=== PATIENT | female | born 1960 | race Caucasian/White ===

== ENCOUNTER 2020-04-30 07:24 | Emergency (ER) | payer BC, SELFPAY ==
[2020-04-30 07:50] VITALS: BP 147/80; PULSE 102; RESP 14; TEMP 36.4; O2SAT 97
--- NOTE | 2020-04-30 08:02 | ED.GENADULT ---
HPI - General Adult General Chief complaint: Eye Problems Stated complaint: splashed hand glove cleaner in eye Source: patient Mode of arrival: ambulatory History of Present Illness HPI narrative: Gail is a previously healthy 59F that presented to the ED after she got make up in her right eye. She immediately irrigated it for 10-15 minutes with tap water. She followed the instructions on the bottle and came to see a doctor. She does not know the active ingredient. Her vision has returned to normal. After washing it out it was a little irritated but now feels normal. She has no other symptoms. Related Data Home Medications Medication Instructions Recorded Confirmed digoxin 125 mcg PO DAILY 04/30/20 04/30/20 verapamil 240 mg PO DAILY 04/30/20 04/30/20 Allergies Allergy/AdvReac Type Severity Reaction Status Date / Time butorphanol Allergy Severe HYPERTENSION, Verified 04/30/20 08:15 TACHYCARDIA Cephalosporins Allergy Severe SKIN Verified 04/30/20 08:15 PEELING cephalexin Allergy Unknown Unknown Verified 04/30/20 08:15 BUTORPHANOL TARTRATE Allergy Unknown Unknown Uncoded 04/30/20 08:15 Review of Systems Constitutional: Constitutional: Reports no additional constitutional complaints, Denies chills, Denies fever(s) and Denies weakness Eyes: Eyes: Reports as per HPI ENT: Reports system reviewed and no additional complaints, except as documented Cardiovascular: Cardiovascular: Reports no additional cardiovascular complaints Respiratory: Respiratory: Reports no additional respiratory complaints Gastrointestinal: Gastrointestinal: Reports no additional gastrointestinal complaints Genitourinary: Genitourinary: Reports no additional female genitourinary complaints Musculoskeletal: Musculoskeletal: Reports no additional musculoskeletal complaints Integumentary/Breasts: Skin/Breast: Reports system reviewed and no additional complaints, except as docu Neurologic: Reports system reviewed and no additional complaints, except as documented Psychiatric: Psychiatric: Reports no additional psychiatric complaints Exam Const: General: no acute distress and alert; No confusion Orientation/consciousness: patient oriented x3 Limitations: No altered mental status HENMT: Head: normal to inspection Eyes: Pupils: Equal, round and reactive pupils present Other: Very slight conjunctival injection on the right. Vision 20/25 on the L, and 20/30 on the right Neck: Neck: normal visual inspection Chest: Chest palpation & inspection: normal inspection of the chest Resp: Effort & Inspection: normal respiratory effort Cardio: Rate: regular rate GI: GI Palp: Yes Soft to palpation, No Tenderness to palpation present (GI) and No Guarding due to palpation present (GI) : General: Yes no CVA tenderness Skin: General skin exam: normal color Rashes: no rashes Neuro: General: patient oriented x3 and moves all extremities Extrem: General: normal to inspection Psych: Mental Status: mental status grossly normal Course Course Emergency Course: Gail was evaluated. Eye was irrigated with dacirose eye irrigation. She remained pain free and here eyesight was at baseline. She was discharged with prophylactic eye drops Vital Signs Vital signs: Vital Signs Temperature 97.6 F 04/30/20 07:50 Pulse Rate 102 H 04/30/20 07:50 Respiratory Rate 14 04/30/20 07:50 Blood Pressure 147/80 H 04/30/20 07:50 Pulse Oximetry 97 04/30/20 07:50 Temperature 97.6 F 04/30/20 07:50 Pulse Rate 102 H 04/30/20 07:50 Respiratory Rate 14 04/30/20 07:50 Blood Pressure 147/80 H 04/30/20 07:50 Pulse Oximetry 97 04/30/20 07:50 Medical Decision Making Vital Signs Vital Signs: Vital Signs Temperature 97.6 F 04/30/20 07:50 Pulse Rate 102 H 04/30/20 07:50 Respiratory Rate 14 04/30/20 07:50 Blood Pressure 147/80 H 04/30/20 07:50 Pulse Oximetry 97 04/30/20 07:50 Temperature 97.6 F 04/30/20 07:50 Pulse
[2020-04-30] MEDS: DACRIOSE EYE IRRIGATION 118 ML BOTTLE 100 ML RIGHT EYE (08:16)
[2020-04-30 08:50] VITALS: BP 147/91; PULSE 90; RESP 15; O2SAT 99
== END 2020-04-30 08:51 | disposition home or self-care (01) ==
PROVIDERS: Emergency Provider Family Medicine; PCP Internal Medicine
DX: H57.11 Ocular pain, right eye (principal)
CPT/HCPCS: 99283; A9270

== ENCOUNTER 2022-08-20 09:23 | Emergency (ER) | payer BC, SELFPAY ==
[2022-08-20 09:26] VITALS: BP 165/80; PULSE 110; RESP 20; TEMP 37; O2SAT 99
--- NOTE | 2022-08-20 09:38 | ED.GENADULT ---
HPI - General Adult General Chief complaint: Extremity Injury, Lower Stated complaint: Leg pain Time Seen by Provider: 08/20/22 09:38 History of Present Illness HPI narrative: The patient is an otherwise healthy 62 year old woman with history of supraventricular tachycardia on digoxin and verapamil therapy. No history of hyperlipidemia. For the last 3 days, she has been wearing flip-flops and noticed that she has an aching pain in the posterior aspect of both thighs. No trauma or falls. No pain at the knee or the hip or below the knee, the pain is only in the thighs posteriorly. No back pain or neck pain. No numbness or paresthesias. It is an aching sensation, not severe. She has taken Tylenol and ibuprofen which has relieved her symptoms. She is worried about a blood clot or any other symptoms before a big trip that she has planned. No fevers. No dyspnea. No wheezing. No other complaints. Related Data Home Medications Medication Instructions Recorded Confirmed digoxin 125 mcg (0.125 mg) tablet 125 mcg PO DAILY 04/30/20 04/30/20 verapamil 240 mg 24 hr 240 mg PO DAILY 04/30/20 04/30/20 capsule,extended release Allergies Allergy/AdvReac Type Severity Reaction Status Date / Time butorphanol Allergy Severe HYPERTENSION, Verified 05/07/20 12:46 TACHYCARDIA Cephalosporins Allergy Severe SKIN Verified 05/07/20 12:46 PEELING cephalexin Allergy Unknown Unknown Verified 05/07/20 12:46 BUTORPHANOL TARTRATE Allergy Unknown Unknown Uncoded 05/07/20 12:46 Review of Systems Review of Systems: All systems reviewed & are unremarkable except as noted in HPI and below Constitutional: Constitutional: Denies chills, Denies excessive sweating, Denies fatigue, Denies fever(s), Denies headache(s) and Denies weakness Eyes: Eyes: Denies change in vision and Denies photophobia ENT: Denies dysphagia, Denies dizziness, Denies headache(s), Denies lip swelling, Denies nasal congestion, Denies sore throat and Denies tongue swelling Cardiovascular: Cardiovascular: Denies chest pain, Denies syncope, Denies rapid heart rate and Denies dyspnea Respiratory: Respiratory: Denies cough, Denies dyspnea and Denies wheezing Gastrointestinal: Gastrointestinal: Denies abdominal pain, Denies constipation, Denies dysphagia, Denies diarrhea, Denies nausea and Denies vomiting Genitourinary: Genitourinary: Denies hematuria, Denies urinary frequency, Denies dysuria and Denies urinary urgency Musculoskeletal: Musculoskeletal: Denies back pain, Denies myalgias ( Does have pain at both thighs posteriorly), Denies arthralgias, Denies joint swelling and Denies numbness Integumentary/Breasts: Skin/Breast: Denies pruritus, Denies erythema and Denies rash Neurologic: Denies confusion, Denies dizziness, Denies syncope, Denies headache(s), Denies focal weakness, Denies numbness and Denies weakness Psychiatric: Psychiatric: Denies anxiety and Denies confusion Endocrine: Endocrine: Denies excessive sweating and Denies fatigue Hematologic/Lymphatic: Hematologic/Lymphatic: Denies easy bleeding and Denies easy bruising Allergic/Immunologic: Allergic/Immunologic: Denies lip swelling, Denies tongue swelling and Denies wheezing PMFSH Family History Family History Mother Hypertension Father Hypertension Exam Const: General: healthy appearing, no acute distress, alert and well nourished Nutritional Appearance: well nourished Orientation/consciousness: patient oriented x3 Limitations: no limitations HENMT: Head: normal to inspection Ears: external ears normal Face/Nose/Sinus: normal facial exam Face and sinus: normal facial exam Mouth: Yes moist mucous membranes Throat: posterior oropharynx normal Eyes: Conjunctivae: conjunctivae normal Pupils: Equal, round and reactive pupils present EOM: EOMs intact bilaterally Neck: Neck: normal visual inspection and no meningeal signs Chest: Chest pa
[2022-08-20] MEDS: ACETAMINOPHEN 325 MG TABLET 975 MG PO (10:03)
[2022-08-20] MEDS: IBUPROFEN 600 MG TABLET PO (10:03)
[2022-08-20] MEDS: CYCLOBENZAPRINE HCL 10 MG TABLET PO (10:03)
[2022-08-20 10:11] VITALS: BP 144/82; PULSE 86; RESP 18; TEMP 37.3; O2SAT 97
== END 2022-08-20 10:31 | disposition home or self-care (01) ==
PROVIDERS: Emergency Provider Emergency Medicine
DX: M79.652 Pain in left thigh (principal); M79.651 Pain in right thigh; I47.1 Supraventricular tachycardia
CPT/HCPCS: 99283; A9270

== ENCOUNTER 2022-10-20 17:54 | Emergency (ER) | payer BC, SELFPAY ==
--- NOTE | ~2022-10-20 | CT_ITS ---
EXAMINATION: CT abdomen pelvis wo con DATE: 10/20/2022 19:00 INDICATION: Right flank pain. History of stones. TECHNIQUE: Computed tomography (CT) of the abdomen and pelvis was performed without intravenous contr ast. The dose-length product was 210.40 mGy-cm. Automated exposure control and iterative reconstructi on technique were employed. COMPARISON: CT dated 07/09/2016 FINDINGS: Lung bases are unremarkable no pleural or pericardial effusion. No thoracic lymphadenopathy . Small fat-containing umbilical hernia. Gallstones. Hepatomegaly. The spleen, pancreas, adrenal glan ds and left kidney are unremarkable. There are nonobstructing right renal stones, largest in the righ t renal pelvis measuring 4 mm. No hydronephrosis. Coarse calcification in the left pelvis is unchange d, likely of doubtful clinical significance. Bladder is unremarkable. Colonic diverticulosis without evidence for diverticulitis. No free air or free fluid. IMPRESSION: 1. Nonobstructing right nephrolithiasis. 2: Cholelithiasis. Reviewed, dictated and finalized at location A.
[2022-10-20 17:54] VITALS: BP 160/85; PULSE 80; RESP 20; TEMP 36.6; O2SAT 99
[2022-10-20 18:19] LABS: Appearance Urine Clear (Clear); Bilirubin Urine 1+ (Negative); Blood Urine 3+ (Negative); Glucose Urine UA Negative (Negative); Ketones Urine Negative (Negative); Leukocyte Esterase Ur Negative LEU/UL (Negative); Protein Urine 3+ (Negative); Specific Grav Ur >= 1.030 (1.010-1.020)
[2022-10-20 18:24] LABS: Add Urine Microscopic? YES; Color Urine Dark Orange (Yellow); Nitrate Urine Negative (Negative); RBC Urine >100 /hpf (0-2)
--- NOTE | 2022-10-20 18:24 | ED.FEMALEGU ---
HPI - Female Genitourinary General Chief complaint: Unspecified Stated complaint: Uti not getting better with meds Source: patient Mode of arrival: ambulatory Limitations: no limitations History of Present Illness HPI Narrative: 62-year-old female with a history of Gilbert's, SVT,pyelonephritis 15 years ago was noted to have dark colored urine and malaise 3 days ago for which she went to urgent care. She was noted to have a positive UA and started on Macrobid. After 3 days the patient continues to have --high colored urine. no dysuria or hematuria -- right flank pain no fever or chills MD elicited complaint: UTI Pertinent past history: pyelonephritis Onset (ago): day(s) ( symptoms started 3 days ago) Severity: mild Female Urogenital Radiation: Non-Radiating Quality of pain: aching Consistency: constant Vaginal discharge: none Vaginal bleeding: none Urinary symptoms: Flank Pain Exacerbating factors: none Relieving factors: none Associated symptoms: denies other symptoms Treatment prior to arrival: other ( nitrofurantoin) Related Data Home Medications Medication Instructions Recorded Confirmed digoxin 125 mcg (0.125 mg) tablet 125 mcg PO DAILY 04/30/20 10/20/22 verapamil 240 mg 24 hr 240 mg PO DAILY 04/30/20 10/20/22 capsule,extended release nitrofurantoin macrocrystal 100 mg 100 mg PO BID 10/20/22 10/20/22 capsule Allergies Allergy/AdvReac Type Severity Reaction Status Date / Time butorphanol Allergy Severe HYPERTENSION, Verified 05/07/20 12:46 TACHYCARDIA Cephalosporins Allergy Severe SKIN Verified 05/07/20 12:46 PEELING cephalexin Allergy Unknown Unknown Verified 05/07/20 12:46 BUTORPHANOL TARTRATE Allergy Unknown Unknown Uncoded 05/07/20 12:46 Review of Systems Review of Systems: All systems reviewed & are unremarkable except as noted in HPI and below Constitutional: Constitutional: Reports as per HPI and Reports no additional constitutional complaints Eyes: Eyes: Reports as per HPI and Reports no additional eye complaints ENT: Reports system reviewed and no additional complaints, except as documented and Reports as per HPI Cardiovascular: Cardiovascular: Reports as per HPI and Reports no additional cardiovascular complaints Respiratory: Respiratory: Reports as per HPI and Reports no additional respiratory complaints Gastrointestinal: Gastrointestinal: Reports as per HPI and Reports no additional gastrointestinal complaints Genitourinary: Genitourinary: Reports no additional female genitourinary complaints Musculoskeletal: Musculoskeletal: Reports no additional musculoskeletal complaints Integumentary/Breasts: Skin/Breast: Reports system reviewed and no additional complaints, except as docu and Reports as per HPI Neurologic: Reports system reviewed and no additional complaints, except as documented and Reports as per HPI Psychiatric: Psychiatric: Reports no additional psychiatric complaints and Reports as per HPI Endocrine: Endocrine: Reports no additional endocrine complaints and Reports as per HPI Hematologic/Lymphatic: Hematologic/Lymphatic: Reports no additional hematologic/lymphatic complaints and Reports as per HPI Allergic/Immunologic: Allergic/Immunologic: Reports no additional allergic/immunologic complaints and Reports as per HPI PMF Past Medical History Medical History (Updated 10/20/22 @ 20:23 by Arya Wright MD) Supraventricular tachycardia Family History Family History Mother Hypertension Father Hypertension Exam Const: General: no acute distress Orientation/consciousness: patient oriented x3 Limitations: no limitations HENMT: Head: normal to inspection Ears: external ears normal Face/Nose/Sinus: Normal external nose present Face and sinus: normal facial exam Mouth: Yes Normal oral and palatal mucosa present Throat: posterior oropharynx normal Eyes: Conjunctivae: conjunctivae no
[2022-10-20 18:25] LABS: Amorphous Sediment Urine Few; Calcium Oxalate Crystals Urine Many /hpf; Mucus Urine Moderate /lpf; Squamous Epithelial Cell Urine Few /hpf (Few)
[2022-10-20 19:25] LABS: Hematocrit 40.2 % (35.0-49.0); Mean Corpuscular HGB Conc 34.8 g/dL (32.0-36.0); Mean Corpuscular Hemoglobin 32.4 pg (27.0-31.0); Mean Corpuscular Volume 93.1 fL (78.0-102.0); Mean Platelet Volume 9.9 fl (9.2-11.8); Platelet Count Result 159 K/mm3 (150-420); Red Blood Count 4.32 M/mm3 (4.20-5.40); Red Cell Distribution Width 11.7 % (11.6-14.4); White Blood Count 3.9 K/mm3 (4.8-10.8)
[2022-10-20 19:40] LABS: Alanine Aminotransferase 58 U/L (14-59); Albumin Level 4.5 g/dL (3.4-5.0); Alkaline Phosphatase 118 U/L (46-116); Anion Gap 7 mmol/L (8-16); Aspartate Amino Transferase 27 U/L (15-37); Bilirubin,Total 1.2 mg/dL (0.00-1.00); Blood Urea Nitrogen 16 mg/dL (7-18); Calcium 9.2 mg/dL (8.5-10.1); Carbon Dioxide 31 mmol/L (21-32); Chloride 101 mmol/L (98-108); Estimated CRCL calculation 82 ml/min; Estimated Glomerular Filt Rate > 60; Glucose 136 mg/dL (70-99); Lipase 61 U/L (16-77); Osmolality Calculated 291 mOsm/kg (285-295); Potassium 3.2 mmol/L (3.5-5.1); Sodium 139 mmol/L (136-145); Total Protein 7.4 g/dL (6.4-8.2)
[2022-10-20 19:45] VITALS: BP 140/66; PULSE 80; RESP 20; O2SAT 97
[2022-10-20 19:47] LABS: Lactic Acid Reflex 1.4 mmol/L (0.4-2.0)
[2022-10-20 19:49] LABS: Band Neutrophils Percent 0 % (0-6); Neutrophils Percent Manual 59 % (46-73); Total Cells Counted 100
[2022-10-20 19:50] LABS: Basophils Absolute Manual 0.03 K/mm3 (0-0.1); Basophils Percent Manual 1 % (0-1); Eosinophils Absolute Manual 0.03 K/mm3 (0.02-0.5); Eosinophils Percent Manual 1 % (1-6); Lymphocytes Absolute Manual 1.17 K/mm3 (1.1-4.5); Lymphocytes Percent Manual 30 % (18-44); Monocytes Absolute Manual 0.35 K/mm3 (0.1-0.90); Monocytes Percent Manual 9 % (3-9); Platelet Estimate Adequate (Adequate); Schistocytes None Seen (NORMAL)
[2022-10-20] MEDS: POTASSIUM CHLORIDE 20 MEQ ER TABLET PO (20:20)
[2022-10-20 20:31] VITALS: BP 133/78; PULSE 80; RESP 17; TEMP 36.6; O2SAT 97
== END 2022-10-20 20:36 | disposition home or self-care (01) ==
PROVIDERS: Emergency Provider Internal Medicine Critical Care Medicine; PCP Internal Medicine
DX: N20.0 Calculus of kidney (principal); K80.20 Calculus of gallbladder without cholecystitis without obstruction; E87.6 Hypokalemia
CPT/HCPCS: 36415; 74176; 80053; 81001; 83605; 83690; 85025; 99284; A9270

== ENCOUNTER 2022-10-25 11:02 | Outpatient (CLI) | payer BC, SELFPAY ==
--- NOTE | ~2022-10-25 | XR_ITS ---
Supine and upright views of the abdomen Clinical history: Renal stone COMPARISON: 08/04/2007 Findings: Bowel gas pattern is nonspecific. No evidence for obstruction or free air. Probable amorpho us 4 mm right lower pole renal stone. Osseous structures are intact. Impression: Probable 4 mm right lower pole renal stone. Reviewed, dictated and finalized at [facility] [place]. Impression: Probable 4 mm right lower pole renal stone.
== END 2022-10-25 11:03 | disposition home or self-care (01) ==
LOC: CHSIMG 11:04
PROVIDERS: PCP Internal Medicine; Visit Provider Urology
DX: N20.0 Calculus of kidney (principal)
CPT/HCPCS: 74018

== ENCOUNTER 2022-11-15 16:03 | Outpatient (CLI) | payer BC, SELFPAY ==
[2022-11-15 16:44] LABS: Partial Thromboplastin Time 27.7 SEC (23.90-30.70); Prothrombin Time 10.9 Seconds (9.50-12.10)
[2022-11-15 17:47] LABS: Digoxin 0.6 ng/mL (0.9-2.0)
== END 2022-11-15 16:04 | disposition home or self-care (01) ==
LOC: CHSLAB 16:05
PROVIDERS: Anesthesiology; PCP Internal Medicine; Visit Provider Urology
DX: N20.0 Calculus of kidney (principal); Z51.81 Encounter for therapeutic drug level monitoring
CPT/HCPCS: 36415; 80162; 85610; 85730

== ENCOUNTER 2022-11-16 07:06 | Outpatient (CLI) | payer BC, SELFPAY ==
--- NOTE | 2022-11-16 07:13 | ECG_ITS ---
Measurements Intervals [place] Rate: 74 P: 70 FL: 144 QRS: 77 QRSD: 100 T: 70 QT: 402 QTc: 447 Interpretive Statements SINUS RHYTHM MINIMAL ST DEPRESSION INFEROLATERALLY SUGGESTIVE OF ISCHEMIA; CLINICAL CORRELATION NEEDED NO PREVIOUS ECG AVAILABLE FOR COMPARISON Electronically Signed On 11-17-2022 13:59:30 CDT by Marry Garcia M.D.
== END 2022-11-16 07:07 | disposition home or self-care (01) ==
LOC: CHSLAB 07:08
PROVIDERS: PCP Internal Medicine; Visit Provider Urology
DX: Z01.818 Encounter for other preprocedural examination (principal); R82.90 Unspecified abnormal findings in urine; N20.0 Calculus of kidney; I49.8 Other specified cardiac arrhythmias
CPT/HCPCS: 87086; 87088; 93005

== ENCOUNTER 2022-11-19 01:44 | Day surgery (SDC) | payer BC, SELFPAY ==
[2022-11-15 15:11] VITALS: BMI 25.0
--- NOTE | 2022-11-15 15:17 | PC.NURSE ---
Report to the Outpatient Waiting Room, entrance under the green pavilion located off [facility], at time 6:00 on date 11/19/22. Planned Procedure Time: 7:30. Time changes happen often and if your time is changed the preop area will call you the afternoon before. - You and your visitor will be asked to self-screen and do not enter if you have any COVID symptoms. - A mask is optional within the hospital at this time. Patients may have clear liquids (water, carbonated beverages, clear teas, apple juice) until 3 hours prior to surgery with a maximum of 20 ounces. - No food from midnight until time of surgery Take the following medications with a SIP of water the morning of surgery: N/A DO NOT STOP ANY OF YOUR OTHER PRESCRIPTION MEDICATIONS PRIOR TO SURGERY ?EXCEPT THE FOLLOWING Medications to discontinue per physician: VITAMINS/SUPPLEMENTS Date to take last dose: 11/15/22 Please no make-up, nail syrian, hairspray, perfume, deodorant, or body powder the day of surgery. No jewelry (including any body piercings) or valuables the day of surgery, leave them at home. Please take a shower or bath the night before, or the morning of, surgery with an antibacterial soap. Wear comfortable, loose fitting clothing. - Jewelry must be removed prior to entering the operating room. Rings and piercings that are not removed may be cut off. - The hospital will not accept responsibility for valuables. - Please leave all valuables, including medications, at home the day of surgery. If you are going home after surgery, a licensed drop hammer pile driver operator must drive you home. - NO public transportation without another adult if you receive anesthesia. - We recommend that an adult stay with you for 24 hours following discharge. - We also recommend that you do not drive, make important decision, drink alcoholic beverages, or take any drugs that were not prescribed by your health care provider for at least 24 hours after your discharge time. Follow any additional instructions given to you from your surgeon. If you or anyone in your household have experienced Covid symptoms in the past week, please notify your surgeon or the nurse liaison at the phone number below for possible testing. Telephone instructions given to PT - DM [place]T and asked if any additional questions and then verbalized understanding. Patient advised to call surgeon office or pre surgery nurse liaison [phone] if any additional questions.
--- NOTE | ~2022-11-19 | XR_ITS ---
EXAMINATION: XR abdomen/kub 1V DATE: 11/19/2022 06:19 INDICATION: Kidney stones. TECHNIQUE: A supine view of the abdomen on 2 radiographs was obtained. COMPARISON: CT abdomen and pelvis 10/20/2022 FINDINGS: There are no dilated loops of bowel. There is a 6 mm stone in right kidney. IMPRESSION: 1. 6 mm right kidney stone. Reviewed, dictated and finalized at location A. IMPRESSION: 1. 6 mm right kidney stone.
[2022-11-19 06:30] VITALS: BP 148/67; PULSE 90; RESP 16; TEMP 36.4; O2SAT 99
[2022-11-19] MEDS: LACTATED RINGERS 1,000 ML 30 ML IV CONT ×2 (06:30→08:00)
--- NOTE | 2022-11-19 06:42 | WPDHPUPDATE1 ---
History and Physical Update Update Date/Time: 11/19/22 06:42 History and Physical has been reviewed, including an updated exam of the patient. There are NO changes in the patient's condition. Risks, benefits, and alternatives have been discussed and questions answered. Patient agrees to proceed with procedure.
--- NOTE | 2022-11-19 06:45 | WPDHPUPDATE1 ---
History and Physical Update Update Date/Time: 11/19/22 06:45 History and Physical has been reviewed, including an updated exam of the patient. There are NO changes in the patient's condition. Risks, benefits, and alternatives have been discussed and questions answered. Patient agrees to proceed with procedure. Plan: Right ESWL
--- NOTE | 2022-11-19 06:46 | P.PNAN_ITS ---
Anes - Initial Pre Proc Eval Procedure: Operation Date: 11/19/22 07:30 Proposed Procedures p Right Extracorporeal Shock Wave Lithotripsy - Denny Martin MD Date/Time: 11/19/22 06:46 Surgeon: Denny Martin MD Pre Op Diagnosis: right renal stone Patient Data Age: 62 Gender: F Height: 1.63 m Weight: 66 kg Allergies Allergy/AdvReac Type Severity Reaction Status Date / Time butorphanol Allergy Severe HYPERTENSION, Verified 11/15/22 15:09 TACHYCARDIA Cephalosporins Allergy Severe SKIN Verified 11/15/22 15:09 PEELING cephalexin Allergy Unknown Other Verified 11/15/22 15:09 Home Medications Medication Instructions Recorded Confirmed Type digoxin 125 mcg (0.125 mg) tablet 125 mcg PO HS 04/30/20 11/15/22 History verapamil 240 mg 24 hr 240 mg PO HS 04/30/20 11/15/22 History capsule,extended release cetirizine 10 mg tablet (Zyrtec) 10 mg PO HS 11/15/22 11/15/22 History multivitamin 1 tablet PO DAILY 11/15/22 11/15/22 History potassium chloride 20 mEq 20 meq PO DAILY 11/15/22 11/15/22 History tablet,extended release(part/cryst) Patient hx anesthesia problems: none Family hx anesthesia problems: none Results Review: All pre-operative results and documents have been reviewed as part of the pre- operative evaluation. [facility] Past Medical History Medical History (Updated 11/19/22 @ 07:13 by Ant Martinez DO) Supraventricular tachycardia well controlled for 30 years Family History Family History Mother Hypertension Father Hypertension Social History Social History Smoking status: Never smoker Alcohol intake: never Substance use: never Substance use type: does not use Living arrangements: with family Spiritual care concerns: No Anes - Eval Final PreProcedure Day of Procedure 11/19/22 06:46 Patient weight: normal Heart: regular rate and rhythm Lungs: clear to auscultation Airway: Mallampati scale class II Neurological: alert and oriented Last oral intake: >/= 8 hours ASA classification: II Emergent: no Anesthetic plan: proceed Anesthesia type and monitoring: general LMA and standard monitoring Results Review: All pre-operative results and documents have been reviewed as part of the pre- operative evaluation. Informed Consent: The patient's anesthetic plan and its attendant risks and benefits were discussed with the patient/family/POA. Questions were solicited and answers provided to the satisfaction of the patient/family/POA.
[2022-11-19] MEDS: levoFLOXacin 500 MG/D5W 100 ML 500 MG/100 ML BAG 100 MG IVPB (07:20)
[2022-11-19 08:00] VITALS: BP 161/86; PULSE 94; RESP 22; TEMP 36.1; O2SAT 99
--- NOTE | 2022-11-19 08:09 | W.PM.PROC2 ---
Procedure Note - Detailed Date of Procedure 11/19/22 Pre-op Diagnosis Right renal stone Post-op Diagnosis Same Procedure Performed Right ESWL Surgeon Denny Martin MD Anesthesia MAC Description of Procedure The patient was brought to the operative suite where she was placed in the supine position on the Dornier lithotripsy table. The focal point of the lithotripter was placed at a 5-6mm right lower pole renal calculus. A total of 2500 shocks were delivered at a power setting of 4. There appeared to be good fragmentation of the stone. The patient tolerated the procedure well and was taken to the recovery room in good condition. Drains No Pathology None sent Condition Stable Disposition PACU
[2022-11-19 08:15] VITALS: BP 146/82; PULSE 84; RESP 14; O2SAT 100
[2022-11-19 08:30] VITALS: BP 148/76; PULSE 69; RESP 14; O2SAT 100
[2022-11-19 08:43] VITALS: BP 157/92; PULSE 90; RESP 20; O2SAT 99
[2022-11-19 08:47] VITALS: BP 127/89; PULSE 79; RESP 18
== END 2022-11-19 09:39 | disposition home or self-care (01) ==
PROVIDERS: PCP Internal Medicine; Visit Provider Urology
PROC: (CPT 50590; principal; 2022-11-19 07:30)
DX: N20.0 Calculus of kidney (principal); I10 Essential (primary) hypertension; I47.1 Supraventricular tachycardia
CPT/HCPCS: 50590; 74018; J1100; J1956; J2405; J2704; J7120

== ENCOUNTER 2022-11-26 14:58 | Outpatient (CLI) | payer BC, SELFPAY ==
--- NOTE | ~2022-11-26 | XR_ITS ---
EXAMINATION: XR abdomen/kub 1V DATE: 11/26/2022 15:47 INDICATION: Kidney stone. TECHNIQUE: A supine view of the abdomen on 2 radiographs was obtained. COMPARISON: CT abdomen and pelvis 10/20/2022 FINDINGS: There are no dilated loops of bowel. There is a large volume of stool in the colon. There i s no visible urolithiasis. IMPRESSION: 1. No visible urolithiasis. Reviewed, dictated and finalized at location E. IMPRESSION: 1. No visible urolithiasis.
== END 2022-11-26 14:59 | disposition home or self-care (01) ==
LOC: CHSIMG 15:00
PROVIDERS: PCP Internal Medicine; Visit Provider Urology
DX: N20.0 Calculus of kidney (principal)
CPT/HCPCS: 74018

== ENCOUNTER 2023-01-04 09:25 | Outpatient (CLI) | payer BC, SELFPAY ==
--- NOTE | 2023-01-04 | ECHO_ITS ---
Patient Info Name: Gail Queen Age: 62 years : 1960 Gender: Female Ht: 65 in Wt: 145 lbs BSA: 1.75 m2 HR: 84 bpm BP: 160 / 84 mmHg Heart Rhythm: Sinus Rhythm Technical Quality: Good Exam Date: 01/04/2023 10:05 AM Exam Location: [facility] Patient Status: Outpatient Admit Date: 01/04/2023 Staff Ordering Physician: RenMorgan MD Machine Set Up: Nan Last RDCS Attending Provider: TonioMorgan MD Exam Type: CA echo doppler color flow Study Info Indications - ABN EKG Complete two-dimensional, color flow and Doppler transthoracic echocardiogram is performed. Summary 1. Complete two-dimensional, color flow and Doppler transthoracic echocardiogram is performed. 2. Left ventricular chamber dimension is normal. 3. Left ventricular systolic function is normal, estimated at 65-70%. 4. There is no increased left ventricular wall thickness. 5. The left ventricular diastolic function is grade I diastolic dysfunction. 6. There is mild aortic valve sclerosis. 7. There is mild to moderate mitral valve regurgitation. 8. The mitral valve has thickened leaflets. 9. There is mild tricuspid valve regurgitation. 10. Mild pulmonary hypertension, estimated pulmonary arterial systolic pressure is 37 mmHg. 11. There is mild pulmonic regurgitation. Left Ventricle Left ventricular chamber dimension is normal. Left ventricular systolic function is normal, estimated at 65-70%. There is no increased left ventricular wall thickness. The left ventricular diastolic function is grade I diastolic dysfunction. Right Ventricle Right ventricular chamber dimension is normal. Right ventricular systolic function is normal. Left Atria Left atrial chamber dimension is normal. Right Atria Right atrial chamber dimension is normal. Atrial Septum Intact interatrial septum visualized by color flow imaging. Aortic Valve The aortic valve is trileaflet. There is mild aortic valve sclerosis. There is no aortic valve stenosis. There is trace aortic valve regurgitation. Pulmonic Valve The pulmonic valve is normal. There is no pulmonic valve stenosis. There is mild pulmonic regurgitation. Mitral Valve The mitral valve has thickened leaflets. There is no mitral valve stenosis. There is mild to moderate mitral valve regurgitation. Tricuspid Valve The tricuspid valve leaflets are normal. There is no significant tricuspid valve stenosis. There is mild tricuspid valve regurgitation. Mild pulmonary hypertension, estimated pulmonary arterial systolic pressure is 37 mmHg. Pericardium/Pleural The pericardium appears normal. There is no pericardial effusion. Inferior Vena Cava Normal inferior vena cava with >50% collapse upon inspiration consistent with normal right atrial pressure, 10 mmHg. Aorta The aortic root size at the sinus of Valsalva is mildly dilated. Left Ventricular Outflow Tract Name Value Normal LVOT 2D LVOT Diameter 2.1 cm LVOT Doppler LVOT Peak Gradient 5 mmHg LVOT Mean Gradient 2 mmHg LVOT VTI 25 cm LVOT VTI/AV VTI Ratio 0.9 LVOT Stroke Volum
--- NOTE | 2023-01-04 | EST_ITS ---
Patient Info Name: Gail Queen Age: 62 years : 1960 Gender: Female Ht: 64 in Wt: 150 lbs BSA: 1.77 m2 Exam Date: 01/04/2023 11:32 AM Exam Location: [facility] Stress Patient Status: Outpatient Admit Date: 01/04/2023 Staff Ordering Physician: Ren, Morgan ALEMAN Attending Provider: Ren, Morgan ALEMAN Exercise Technologist: Alissa Pedroza RDCS Nurse: Effie Mena APN Exam Type: CA stress majo w NM Study Info Indications R94.31 - Abnormal electrocardiogram ECG EKG A regadenoson stress test was performed. Summary 1. No abnormal ST/T wave changes diagnostic of ischemia with Lexiscan. 2. Please correlate with nuclear medicine images, reported separately. 3. Stress test supervised by Effie Mena NP. Stress test interpreted by Oneida Meléndez MD. Protocol: Lexiscan Stress ECG Details Stage: REST Duration (min): 1 min : 8 sec HR (bpm): 96 SBP (mmHg): 140 DBP (mmHg): 95 Stage: REST Duration (min): 5 min : 19 sec HR (bpm): 91 SBP (mmHg): 140 DBP (mmHg): 95 Stage: STAGE 1 Duration (min): 1 min : 0 sec HR (bpm): 123 SBP (mmHg): 178 DBP (mmHg): 82 Stage: RECOVERY Duration (min): 1 min : 0 sec HR (bpm): 120 SBP (mmHg): 178 DBP (mmHg): 82 Stage: RECOVERY Duration (min): 2 min : 0 sec HR (bpm): 107 SBP (mmHg): 167 DBP (mmHg): 81 Stage: RECOVERY Duration (min): 3 min : 0 sec HR (bpm): 102 SBP (mmHg): 168 DBP (mmHg): 85 Stage: RECOVERY Duration (min): 3 min : 3 sec HR (bpm): 100 SBP (mmHg): 168 DBP (mmHg): 85 Rest HR: 91 bpm Peak HR: 127 bpm Rest Sys BP: 140 mmHg Peak Sys BP: 178 mmHg Max Pred HR: 160 bpm % Max Pred HR: 79 % Target HR: 136 bpm Max RPP: 22,606 bpm*mmHg Total Time: 1 min : 0 sec Rest Lee BP: 95 mmHg Peak Lee BP: 82 mmHg Total Dose: 0.4 mg Resting ECG Sinus rhythm with nonspecific STTW abnormality. Stress ECG Sinus tachycardia. No abnormal ST/T wave changes diagnostic of ischemia with Lexiscan. Arrhythmias None. Report Signatures
--- NOTE | ~2023-01-04 | NM_ITS ---
EXAMINATION: NM majo stress w perfusion DATE: 01/04/2023 12:27 CDT INDICATION: Abnormal EKG. TECHNIQUE: Rest images were obtained following intravenous administration of 9 mCi Tc99m tetrofosmin (Myoview). The patient was infused intravenously with Lexiscan (regadenoson). Then, 27.3 mCi Tc99m te trofosmin (Myoview) was administered intravenously, and stress images were obtained. Data was reconst ructed into short axis and horizontal and vertical long axis SPECT images. Gated SPECT images were al so obtained. COMPARISON: None. FINDINGS: There is no definite reversible or fixed perfusion abnormality to suggest ischemia or infar ction. There is no segmental wall motion abnormality. Left ventricular ejection fraction measures 7 7%. IMPRESSION: 1. No definite ischemia or infarct. 2. Normal left ventricular ejection fraction measuring 77%. Reviewed, dictated and finalized at location L.
== END 2023-01-04 09:26 | disposition home or self-care (01) ==
PROVIDERS: PCP Internal Medicine; Visit Provider Internal Medicine
DX: R94.31 Abnormal electrocardiogram [ECG] [EKG] (principal); I08.3 Combined rheumatic disorders of mitral, aortic and tricuspid valves
CPT/HCPCS: 78452; 93017; 93306; A9502; J2785

== ENCOUNTER 2023-01-18 08:40 | Outpatient (CLI) | payer BC, SELFPAY ==
--- NOTE | 2023-02-06 05:24 | WPDHOMESLEEP ---
Sleep Study - Home Unattended Date of Study: 01/18/23 Ordering Provider: Morgan Mcclure, Interpreting Provider: Nely Valentin MD Home Sleep Study Type: Watch PAT Height: 1.63 m Weight: 65.771 kg Body Mass Index: 24.9 Neck Circumference (inches): 13 Hagerman: 6 Reason for Sleep Study History of restless legs Sleep History Gail Queen is a 62-year-old woman with long history of restless legs. She never awakens from sleep short of breath. She never wakes at night with heartburn, belching or coughing.??She rarely snores, never snores loudly enough that others complain. She occasionally has trouble sleeping when she has a cold. She never wakes up gasping for breath during the night. She never has breathing problems at night. She never sweats excessively at night. She never notices her heart pounding or beating irregularly during the night. She never asleep during the day. She never falls asleep involuntarily, never falls asleep while driving. She never experiences loss of muscle tone with strong emotion. She never feels paralyzed on waking or falling asleep. She rarely experiences vivid dreams upon waking or falling asleep. She never feels afraid of going to sleep. She rarely has nightmares. She frequently recalls her dreams. She rarely has thoughts racing through her mind. She rarely feels sad or depressed. She occasionally feels anxiety. She never notices parts of her body jerk. She never kicks during the night. She occasionally feels crawling or aching feelings in her legs. She rarely feels leg pain at night. She never has morning jaw pain, and never grinds her teeth at night. She rarely feels bothered by pain during the day, never awakened by pain during the night. She never wakes up feeling stiff in the morning, never wakes feeling sore or achy in the morning. She never awakens with pain in her neck, spine, or joints. Normal bedtime is 9:00 p m waking 1-2 times during the night long enough to go to the bathroom and return to sleep. She wakes the morning between 5 and 6:00 a.m.. Weekend schedule is similar, she wakes at 7:00 a.m.. She estimates getting 7-8 hours of sleep at night. She occasionally takes naps in the day. A short nap lasting 10-15 minutes may be refreshing. She usually feels good on waking. She feels better in the evening compared to other times a day. Habits:??Tobacco: never smoker Caffeine:1-3 per week. Alcohol:none Recreational substances: none FORMERLY [facility], 1928–1983 Past Medical History Medical History (Updated 02/07/23 @ 10:14 by Nely Valentin MD) Mitral regurgitation Restless legs syndrome (RLS) Rhinitis Supraventricular tachycardia well controlled for 30 years Family History Family History Mother Hypertension Father Hypertension Social History Social History Smoking status: Never smoker Alcohol intake: never Substance use: never Substance use type: does not use Living arrangements: with family Spiritual care concerns: No Medications Home Medications Medication Instructions Recorded Confirmed Type digoxin 125 mcg (0.125 mg) tablet 125 mcg PO HS 04/30/20 11/15/22 History verapamil 240 mg 24 hr 240 mg PO HS 04/30/20 11/15/22 History capsule,extended release cetirizine 10 mg tablet (Zyrtec) 10 mg PO HS 11/15/22 11/15/22 History multivitamin 1 tablet PO DAILY 11/15/22 11/15/22 History potassium chloride 20 mEq 20 meq PO DAILY 11/15/22 11/15/22 History tablet,extended release(part/cryst) ketorolac 10 mg tablet 10 mg PO Q6H 5 days #20 tabs 11/19/22 Rx nitrofurantoin 100 mg PO Q12H 3 days #6 caps 11/19/22 Rx monohydrate/macrocrystals 100 mg capsule (Macrobid) Sleep Procedure The sleep study was completed using [employer] a technically adequate device with seven channels: peripheral arterial tone, actigraphy, body position, snore,
[2023-02-07 10:11] VITALS: BMI 24.9
== END 2023-01-19 10:51 | disposition home or self-care (01) ==
LOC: ANHCSM 08:41
PROVIDERS: PCP Internal Medicine; Visit Provider Internal Medicine
DX: G47.9 Sleep disorder, unspecified (principal); G25.81 Restless legs syndrome
CPT/HCPCS: 95800

== ENCOUNTER 2023-03-18 17:11 | Outpatient (CLI) | payer BC, SELFPAY ==
[2023-03-18 18:00] LABS: Ferritin 190 ng/mL (8-252)
== END 2023-03-18 17:12 | disposition home or self-care (01) ==
LOC: CHSLAB 17:14
PROVIDERS: PCP Internal Medicine; Visit Provider Internal Medicine
DX: G47.9 Sleep disorder, unspecified (principal)
CPT/HCPCS: 36415; 82728

== ENCOUNTER 2023-10-10 22:15 | Emergency (ER) | payer BC, SELFPAY ==
--- NOTE | ~2023-10-10 | CT_ITS ---
EXAMINATION: CTA brain carotid DATE: 10/10/2023 23:31 INDICATION: r/o dissection TECHNIQUE: Computed tomographic angiography (CTA) of the head was performed without and with 100 mL O mnipaque-350 intravenous contrast. CTA of the neck was performed with intravenous contrast. Automated exposure control and iterative reconstruction technique were employed. The dose-length product was 1 576.22 mGy-cm. Maximum intensity projection and volume rendered 3D-reconstructions were created by leslee delaney technologist on a separate workstation. COMPARISON: None. FINDINGS: CT BRAIN: No acute large vessel infarct, intracranial hemorrhage, mass, or hydrocephalus. CTA HEAD: No large vessel occlusion, aneurysm, high flow vascular malformation, nidus or extravasation. Persist ent origin of the right posterior cerebral artery, a normal variant. Symmetric parenchymal enha ncement. Patent cerebral veins. CTA NECK: Motion artifact and dental metallic artifact somewhat limit evaluation of the right bifurcation and b ilateral distal vertebral arteries. Aortic arch and proximal great vessels: Normal arch anatomy. Mild arch calcification. Right common carotid, carotid bifurcation, and internal carotid artery: Calcifications at the bifurca tion.There is 0% stenosis of the proximal right internal carotid artery relative to normal distal art meron lumen diameter (NASCET criteria). Left common carotid, carotid bifurcation, and internal carotid artery: Calcification at the bifurcati on.There is 0% stenosis of the proximal left internal carotid artery relative to normal distal artery lumen diameter (NASCET criteria). Vertebral arteries: No significant plaque or stenosis. Mild calcified plaque at the origin of the lef t vertebral artery. The left vertebral artery is dominant. Other findings: Multiple thyroid nodules measuring up to 1.5 cm. IMPRESSION: No acute intracranial process. No large vessel intracranial occlusion, high-grade intracranial stenosis, or aneurysm. No carotid or vertebral artery occlusion, dissection, or significant stenosis. Multiple thyroid nodules, consider nonemergent thyroid ultrasound for further characterization. Reviewed, dictated and finalized at location K. IMPRESSION: No acute intracranial process. No large vessel intracranial occlusion, high-grade intracranial stenosis, or an eurysm. No carotid or vertebral artery occlusion, dissection, or significant stenosis. Multiple thyroid nodules, consider nonemergent thyroid ultrasound for further c haracterization.
[2023-10-10 22:18] VITALS: BP 172/88; PULSE 126; RESP 18; TEMP 36.8; O2SAT 100
--- NOTE | 2023-10-10 22:26 | ECG_ITS ---
Test Date: 2023-10-10 22:38:53 Measurements Intervals [place] Rate: 107 P: 65 MT: 152 QRS: 62 QRSD: 106 T: 67 QT: 358 QTc: 479 Interpretive Statements SINUS TACHYCARDIA [address] ABNORMALITY IN ANTEROLAT/INF LEADS- CONSIDER ISCHEMIA BASELINE ARTIFACT- I, III, AVR, AVL, AVF ABNORMAL ECG No previous ECG available for comparison Electronically Signed On 10-11-2023 06:38:05 CDT by Gael Pacheco D.O.
--- NOTE | 2023-10-10 22:30 | ED.NEUROSD ---
HPI - Neuro Symptoms/Deficit General Chief Complaint: Neuro Symptoms/Deficit Stated Complaint: unspecified Time Seen by Provider: 10/10/23 22:22 Source: patient Mode of arrival: ambulatory Limitations: no limitations History of Present Illness HPI Narrative: 63 year old female presents to the Emergency Department complaining of episode of vision loss. Patient states she was standing in her kitchen looking out the windows and watching the bats outside and she turned her head and suddenly everything went black. States lasted several seconds and resolved. States she feels normal now. Denies chest pain, shortness of breath, nausea, diaphoresis. Denies headache. States she is anxious because she had a friend that had brain tumor. States she had a cardiac work up and stress test in May 2023 that was normal. Onset (ago): minute(s) Location: other (visual loss) History of same: No Relieving factors: none Exacerbating factors: none Context: sudden onset Associated symptoms: denies other symptoms Treatments Prior to Arrival: none Related Data Home Medications Medication Instructions Recorded Confirmed digoxin 125 mcg (0.125 mg) tablet 125 mcg PO HS 04/30/20 10/10/23 verapamil 240 mg 24 hr 240 mg PO HS 04/30/20 10/10/23 capsule,extended release multivitamin 1 tablet PO DAILY 11/15/22 10/10/23 potassium chloride 20 mEq 20 meq PO DAILY 11/15/22 10/10/23 tablet,extended release(part/cryst) Allergies Allergy/AdvReac Type Severity Reaction Status Date / Time butorphanol Allergy Severe HYPERTENSION, Verified 11/19/22 07:48 TACHYCARDIA Cephalosporins Allergy Severe SKIN Verified 11/19/22 07:48 PEELING cephalexin Allergy Unknown Other Verified 11/19/22 07:48 Review of Systems Review of Systems: All systems reviewed & are unremarkable except as noted in HPI and below Constitutional: Constitutional: Reports as per HPI, Reports no additional constitutional complaints, Denies chills and Denies fever(s) Eyes: Eyes: Reports as per HPI and Reports change in vision ENT: Reports system reviewed and no additional complaints, except as documented, Denies vertigo and Denies dizziness Cardiovascular: Cardiovascular: Reports as per HPI and Denies chest pain Respiratory: Respiratory: Reports as per HPI, Denies cough and Denies dyspnea Gastrointestinal: Gastrointestinal: Reports as per HPI, Denies abdominal pain, Denies diarrhea, Denies nausea and Denies vomiting Genitourinary: Genitourinary: Reports no additional female genitourinary complaints Musculoskeletal: Musculoskeletal: Reports no additional musculoskeletal complaints Neurologic: Reports system reviewed and no additional complaints, except as documented, Reports as per HPI, Denies dizziness, Denies syncope, Denies headache(s), Denies focal weakness, Denies numbness and Denies weakness Psychiatric: Psychiatric: Reports anxiety PMFSH Past Medical History Medical History Mitral regurgitation Restless legs syndrome (RLS) Rhinitis Supraventricular tachycardia well controlled for 30 years Family History Family History Mother Hypertension Father Hypertension Social History Social History Smoking status: Never smoker Alcohol intake: never Substance use: never Substance use type: does not use Living arrangements: with family Spiritual care concerns: No Exam Const: General: healthy appearing and no acute distress Nutritional Appearance: well nourished Orientation/consciousness: patient oriented x3 Limitations: no limitations Other: anxious HENMT: Head: normal to inspection Ears: external ears normal Face/Nose/Sinus: Normal external nose present Face and sinus: normal facial exam Mouth: Yes Normal oral and palatal mucosa present Teeth and gingiva: dentition normal Thr
[2023-10-10 22:37] VITALS: PULSE 107
[2023-10-10 22:41] VITALS: PULSE 108; RESP 15; O2SAT 98
[2023-10-10 22:42] VITALS: BP 156/74; PULSE 109; RESP 16; O2SAT 99
[2023-10-10 22:42] LABS: Hematocrit 41.5 % (35.0-49.0); Hemoglobin 14.4 g/dL (12.0-15.0); Immature Platelet Fraction Pct 2.3 % (1.0-7.0); Mean Corpuscular HGB Conc 34.7 g/dL (32-36); Mean Corpuscular Hemoglobin 32.1 pg (27.0-31.0); Mean Corpuscular Volume 92.4 fL (78.0-102.0); Mean Platelet Volume 10.1 fl (9.2-11.8); Platelet Count Result 126 K/mm3 (150-420); Red Blood Count 4.49 M/mm3 (4.20-5.40); Red Cell Distribution Width 11.9 % (11.6-14.4); White Blood Count 3.3 K/mm3 (4.8-10.8)
[2023-10-10 23:00] LABS: Alanine Aminotransferase 45 U/L (14-59); Albumin Level 4.5 g/dL (3.4-5.0); Alkaline Phosphatase 117 U/L (46-116); Anion Gap 8 mmol/L (4-12); Aspartate Amino Transferase 25 U/L (15-37); Bilirubin,Total 1.1 mg/dL (0.00-1.00); Blood Urea Nitrogen 20 mg/dL (7-18); Calcium 9.3 mg/dL (8.5-10.1); Carbon Dioxide 28 mmol/L (21-32); Chloride 103 mmol/L (98-108); Estimated CRCL calculation 93 ml/min; Estimated Glomerular Filt Rate > 60; Glucose 113 mg/dL (70-99); Osmolality Calculated 291 mOsm/kg (285-295); Potassium 3.2 mmol/L (3.5-5.1); Sodium 139 mmol/L (136-145); Total Protein 7.5 g/dL (6.4-8.2); Troponin I 4.2 ng/L (0.00-60.4)
[2023-10-10 23:15] LABS: Band Neutrophils Percent 0 % (0-6); Basophils Absolute Manual 0.03 K/mm3 (0-0.1); Basophils Percent Manual 1 % (0-1); Eosinophils Percent Manual 0 % (1-6); Lymphocytes Absolute Manual 1.48 K/mm3 (1.1-4.5); Lymphocytes Percent Manual 45 % (18-44); Monocytes Absolute Manual 0.23 K/mm3 (0.1-0.90); Monocytes Percent Manual 7 % (3-9); Neutrophils Absolute Manual 1.55 K/mm3 (1.7-7.2); Neutrophils Percent Manual 47 % (46-73); Total Cells Counted 100
[2023-10-10 23:16] LABS: Platelet Estimate Adequate (Adequate); Schistocytes None Seen
[2023-10-10 23:36] LABS: Influenza A QL RT-PCR Negative (Negative); Influenza B QL RT-PCR Negative (Negative); RSV RNA, RT-PCR Negative (Negative); SARS-CoV-2 RNA PCR Negative (Negative)
[2023-10-10 23:44] LABS: Erythrocyte Sedimentation Rate 6 mm/hr (0-20)
[2023-10-11 00:22] VITALS: BP 140/85; PULSE 85; RESP 16; TEMP 36.6; O2SAT 98
== END 2023-10-11 00:22 | disposition home or self-care (01) ==
PROVIDERS: Emergency Provider Emergency Medicine; PCP Internal Medicine
DX: H54.7 Unspecified visual loss (principal); E87.6 Hypokalemia; E04.1 Nontoxic single thyroid nodule; F41.9 Anxiety disorder, unspecified; Z79.899 Other long term (current) drug therapy; Z20.822 Contact with and (suspected) exposure to COVID-19
CPT/HCPCS: 36415; 70496; 70498; 80053; 84484; 85025; 85055; 85652; 87637; 93005; 99284; Q9967

== ENCOUNTER 2023-10-19 08:36 | Outpatient (CLI) | payer BC, SELFPAY ==
[2023-10-19 09:01] LABS: Hematocrit 39.4 % (35.0-49.0); Hemoglobin 13.7 g/dL (12.0-15.0); Mean Corpuscular HGB Conc 34.8 g/dL (32-36); Mean Corpuscular Hemoglobin 32.8 pg (27.0-31.0); Mean Corpuscular Volume 94.3 fL (78.0-102.0); Mean Platelet Volume 10.3 fl (9.2-11.8); Platelet Count Result 146 K/mm3 (150-420); Red Blood Count 4.18 M/mm3 (4.20-5.40); Red Cell Distribution Width 11.9 % (11.6-14.4)
[2023-10-19 09:21] LABS: Band Neutrophils Percent 0 % (0-6); Eosinophils Absolute Manual 0.06 K/mm3 (0.02-0.50); Eosinophils Percent Manual 2 % (1-6); Lymphocytes Percent Manual 40 % (18-44); Monocytes Absolute Manual 0.45 K/mm3 (0.1-0.90); Monocytes Percent Manual 15 % (3-9); Neutrophils Absolute Manual 1.29 K/mm3 (1.7-7.2); Neutrophils Percent Manual 43 % (46-73); Platelet Estimate Adequate (Adequate); Total Cells Counted 100
[2023-10-19 09:32] LABS: Anion Gap 7 mmol/L (4-12); Blood Urea Nitrogen 15 mg/dL (7-18); Calcium 9.4 mg/dL (8.5-10.1); Carbon Dioxide 31 mmol/L (21-32); Chloride 102 mmol/L (98-108); Estimated Glomerular Filt Rate > 60; Glucose 133 mg/dL (70-99); Magnesium 1.9 mg/dL (1.8-2.4); Osmolality Calculated 292 mOsm/kg (285-295); Potassium 3.8 mmol/L (3.5-5.1); Sodium 140 mmol/L (136-145)
== END 2023-10-19 08:37 | disposition home or self-care (01) ==
PROVIDERS: PCP Internal Medicine; Visit Provider Internal Medicine
DX: D72.819 Decreased white blood cell count, unspecified (principal)
CPT/HCPCS: 36415; 80048; 83735; 85025; 88184

== ENCOUNTER 2023-11-14 15:19 | Outpatient (CLI) | payer BC, SELFPAY ==
[2023-11-14 15:38] LABS: Basophils Absolute Auto 0.03 K/mm3 (0.00-0.10); Basophils Percent Auto 0.7 % (0.0-1.0); Eosinophils Absolute Auto 0.05 K/mm3 (0.02-0.50); Eosinophils Percent Auto 1.1 % (1.0-6.0); Hematocrit 37.2 % (35.0-49.0); Hemoglobin 12.9 g/dL (12.0-15.0); Immature Granulocyte Absolute 0.02 K/mm3 (0.00-0.00); Immature Granulocyte Percent A 0.5 % (0.0-0.0); Lymphocytes Absolute Auto 1.35 K/mm3 (1.10-4.50); Lymphocytes Percent Auto 30.7 % (18.0-42.0); Mean Corpuscular HGB Conc 34.7 g/dL (32-36); Mean Corpuscular Hemoglobin 32.8 pg (27.0-31.0); Mean Corpuscular Volume 94.7 fL (78.0-102.0); Mean Platelet Volume 10.2 fl (9.2-11.8); Monocytes Absolute Auto 0.48 K/mm3 (0.10-0.90); Monocytes Percent Auto 10.9 % (2.0-11.0); Neutrophils Absolute Auto 2.47 K/mm3 (1.70-7.20); Neutrophils Percent Auto 56.1 % (50.0-70.0); Platelet Count Result 142 K/mm3 (150-420); Red Blood Count 3.93 M/mm3 (4.20-5.40); White Blood Count 4.4 K/mm3 (4.8-10.8)
[2023-11-14 16:40] LABS: Alanine Aminotransferase 45 U/L (14-59); Albumin Level 4.4 g/dL (3.4-5.0); Alkaline Phosphatase 127 U/L (46-116); Anion Gap 7 mmol/L (4-12); Aspartate Amino Transferase 25 U/L (15-37); Bilirubin,Total 0.8 mg/dL (0.00-1.00); Blood Urea Nitrogen 16 mg/dL (7-18); Calcium 9.6 mg/dL (8.5-10.1); Carbon Dioxide 32 mmol/L (21-32); Chloride 101 mmol/L (98-108); Estimated Glomerular Filt Rate > 60; Glucose 99 mg/dL (70-99); Magnesium 2.2 mg/dL (1.8-2.4); Osmolality Calculated 291 mOsm/kg (285-295); Potassium 4.1 mmol/L (3.5-5.1); Sodium 140 mmol/L (136-145); Total Protein 7.2 g/dL (6.4-8.2)
== END 2023-11-14 15:20 | disposition home or self-care (01) ==
PROVIDERS: PCP Internal Medicine; Visit Provider Internal Medicine
DX: E87.6 Hypokalemia (principal)
CPT/HCPCS: 36415; 80053; 83735; 85025

== ENCOUNTER 2024-07-12 12:41 | Outpatient (CLI) | payer BC, SELFPAY ==
--- OUTSIDE RECORDS SUMMARY | 2024-07-12 12:56 | XMS_ITS | CONTINUITY OF CARE DOCUMENT ---
Author Name chatoelianeamalia Address Unknown Organization [facility] Address [address] [place] [address] Phone [phone] Care Team Providers Care Drafter Apprentice Name Role Phone Nena ALEMAN, Simon Unavailable GENIA SINGH MD Unavailable PROBLEMS Condition Status Date Provider Notes Irregular heart beats active Danielle rivas Cardiovascular screening active Jing Adams INS[employer]ANCE PROVIDERS Payer name Policy type / Coverage type Sabine Pass red democrat ID BLUE SHIELD [facility] Blue Shield [id number] 1 BLUE SHIELD [facility] Blue Shield [id number] 1 TREATMENT PLAN Date Name Complete Echo CT, Coronary Calcium Score HISTORY OF PROCEDURES Procedure Date Procedure Name Provider Procedure Notes S tatus CT- Coronary CA score Simon Barrett MD completed
--- OUTSIDE RECORDS SUMMARY | 2024-07-12 12:56 | XMS_ITS | Clinical Summary ---
Author Organization [facility] Address [address] [place] [address] Phone Care Team Providers Care Railroad Supervisor Of [employer]ines Name Role Phone Morgan Mcclure MD Primary Care Provider [phone] Allergies Active Allergy Reactions Criticality Noted Date Comments Cephalexin Rash 05/15/2019 Butorphanol Other (see Comments) 05/29/2019 Pt states that she was given this while she was laboring with one of her children and her bp dropped and they had to give her Narcon to counter act it. Medications Cetirizine HCl 10 MG Capsule Take by mouth. Active digoxin (LANOXIN) 125 MCG Tablet 04/28/2019 Active Verapamil HCl Powder Active Probiotic Product (PRO-BIOTIC BLEND) Capsule Take by mouth. Active Active Problems Problem Noted Date Diagnosed Date SVT (supraventricular tachycardia) 07/26/2019 MVP (mitral valve prolapse) 07/26/2019 Lymphocytopenia 07/25/2019 Seasonal allergies 07/25/2019 Family History Medical History Relation Name Comments Heart Attack Father Hypertension Father Skin Cancer Father Hypertension Mother Ovarian Cancer Mother Relation Name Status Comments Father Alive Mother Alive Social History Tobacco Use Types Packs/Day Years Used Date Smoking Tobacco: Never Smokeless Tobacco: Never Tobacco Cessation:Counseling Given: No Alcohol Use Standard Drinks/Week Comments Yes 0 (1 standard drink = 0.6 oz pur e alcohol) rarley Comments No Sex and Gender Information Value Date Recorded Sex Assigned at Not on file Legal Sex Female 10:50 PM CDT Gender Identity Not on file Sexual Orientation Not on file Last Filed Vital Signs Vital Sign Reading Time Taken Comments Blood Pressure 120/72 05/29/2019 10:49 AM ASSISTANT TO THE VICE PRESIDENT Pulse 81 05/29/2019 10:49 AM ASSISTANT TO THE VICE PRESIDENT Temperature 37.4 C (99.4 F) 05/29/2019 10:49 AM ASSISTANT TO THE VICE PRESIDENT Respiratory Rate 18 05/29/2019 10:4 9 AM ASSISTANT TO THE VICE PRESIDENT Oxygen Saturation 96% 05/29/2019 10: 49 AM ASSISTANT TO THE VICE PRESIDENT Inhaled Oxygen Concentration - - Weight 65.2 kg (143 lb 12.8 oz) 020 10:49 AM ASSISTANT TO THE VICE PRESIDENT Height 162.6 cm (5' 4 ) 05/29/2019 10:4 9 AM ASSISTANT TO THE VICE PRESIDENT Body Mass Index 24.68 05/29/2019 10:49 AM ASSISTANT TO THE VICE PRESIDENT Plan of Treatment Health Maintenance Due Date Last Done Comments Hepatitis C Virus (HCV) Screening 1960 TdaP Immunization 1960 Colonoscopy 06/15/2007 Colorectal Cancer Screening 06/15/2007 Cologuard 2012 Immunochemical Fecal Occult Blood 2012 Pneumococcal Immunization (5 0+ years) (1 of 1 - PCV) 2012 Zoster Immunization (1 of 2) 2012 Influenza Immunization (#1) 2023 SARS-COV-2 Immunization (1 - 2023-25 season) 2023 Respiratory Syncytial Virus (RSV) Immunization (Adult) (1 - 1-dose 75+ series) 2037 Hepatitis B Immunization Aged Out No longer eligible based on patient's age to complete this topic Meningococcal Immunization (ACWY) Aged Out No longer eligible based on patient's age to complete this topic Rotavirus Immunization Aged Out No lo nger eligible based on patient's age to complete this topic Insurance [facility] Care Teams Railroad Supervisor Of [employer] Relationship Specialty Start Date End Date Morgan Mcclure MD PCP - General Internal Medicine 05/14/19
[2024-07-12 12:57] LABS: Hematocrit 39.2 % (35.0-49.0); Hemoglobin 13.3 g/dL (12.0-15.0); Immature Platelet Fraction Pct 2.6 % (1.0-7.0); Mean Corpuscular HGB Conc 33.9 g/dL (32-36); Mean Corpuscular Volume 94.5 fL (78.0-102.0); Mean Platelet Volume 10.6 fl (9.2-11.8); Platelet Count Result 143 K/mm3 (150-420); Red Blood Count 4.15 M/mm3 (4.20-5.40); Red Cell Distribution Width 11.8 % (11.6-14.4); White Blood Count 3.8 K/mm3 (4.8-10.8)
[2024-07-12 13:29] LABS: Alanine Aminotransferase 36 U/L (14-59); Albumin Level 4.3 g/dL (3.4-5.0); Alkaline Phosphatase 111 U/L (46-116); Anion Gap 7 mmol/L (4-12); Aspartate Amino Transferase 19 U/L (15-37); Bilirubin,Total 1.4 mg/dL (0.00-1.00); Blood Urea Nitrogen 19 mg/dL (7-18); Calcium 9.2 mg/dL (8.5-10.1); Carbon Dioxide 32 mmol/L (21-32); Chloride 104 mmol/L (98-108); Cholesterol 169 mg/dL (0-200); Estimated Glomerular Filt Rate > 60; Glucose 78 mg/dL (70-99); HDL Direct 37 mg/dL (40-60); LDL Cholesterol Calculated 99 mg/dL (<130); Osmolality Calculated 297 mOsm/kg (285-295); Potassium 4.6 mmol/L (3.5-5.1); Sodium 143 mmol/L (136-145); Triglycerides 167 mg/dL (0-150)
[2024-07-12 13:44] LABS: Band Neutrophils Percent 0 % (0-6); Lymphocytes Absolute Manual 1.33 K/mm3 (1.1-4.5); Lymphocytes Percent Manual 35 % (18-44); Monocytes Absolute Manual 0.26 K/mm3 (0.1-0.90); Monocytes Percent Manual 7 % (3-9); Neutrophils Percent Manual 58 % (46-73); Platelet Estimate Adequate (Adequate); Total Cells Counted 100
== END 2024-07-12 12:42 | disposition home or self-care (01) ==
LOC: CHSLAB 12:44
PROVIDERS: PCP Internal Medicine; Visit Provider Internal Medicine
DX: E87.6 Hypokalemia (principal); Z13.6 Encounter for screening for cardiovascular disorders
CPT/HCPCS: 36415; 80053; 80061; 85025; 85055

== ENCOUNTER 2025-01-08 14:41 | Outpatient (CLI) | payer BC, SELFPAY ==
--- NOTE | ~2025-01-08 | CT_ITS ---
EXAMINATION: CT pelvis wo con DATE: 01/08/2025 15:13 INDICATION: Sacrococcygeal disorder. TECHNIQUE: Computed tomography (CT) of the pelvis was performed without intravenous contrast. Automated exposure control and iterative reconstruction technique were employed. The dose-length product was 255.37 mGy-cm. COMPARISON: CT 10/20/2022 FINDINGS: There is an umbilical hernia containing fat. There are no dilated loops of bowel. There are no pathologically enlarged lymph nodes. There is no free intraperitoneal fluid. Alignment is normal. No fracture. There is mild osteoarthritis of the hips. There is mild lumbar spondylosis. 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 Polyarticular osteoarthritis. Reviewed, dictated and finalized at location E.
--- OUTSIDE RECORDS SUMMARY | 2025-01-08 16:43 | XMS_ITS | Clinical Summary ---
Author Organization [facility] [address] Address [address] [place] [address] Care Team Providers Care Cafeteria Manager Name Role Phone Morgan Mcclure MD Primary Care Provider [phone] Encounters Date Type Department Care Team Description 01/03/2025 4:30 PM CDT Lab [address] [address] from Last 3 Months Social History Tobacco Use Types Packs/Day Years Used Date Smoking Tobacco: Never Assessed Personal Safety Answer Date Recorded Getting School Help Needed Not on file 06/09 Comments Unknown Sex and Gender Information Value Date Recorded Sex Assigned at Not on file Legal Sex Female 10:12 AM [employer] Gender Identity Not on file Sexual Orientation Not on file Plan of Treatment Not on file Procedures Procedure Name Priority Date/Time Associated Diagnosis Comments EGFR Routine 01/03/2025 4:39 PM CDT DIFFERENTIAL AUTO Routine 01/03/2025 4:3 9 PM CDT COMPREHENSIVE METABOLIC PANEL Routine 01/03/2025 4:39 PM CDT CBC WITH AUTO DIFFERENTIAL Routine 01/03/2025 4:39 PM CDT from Last 3 Months Results * eGFR (01/03/2025 4:39 PM CDT) eGFR >90 >=60 mL/min/1. 73 m2 Comment: Interpretive Data Reference Interval Normal >/= 90 mL/min/1.73m2 Mildly decreased* 60 - 89 mL/min/1.73m2 Mildly to moderately decreased 45 - 59 mL/min/1.73m2 Moderately to severely decreased 30 - 44 mL/min/1.73m2 Severely decreased 15 - 29 mL/min/1.73m2 Kidney Failure < 15 mL/min/1.73m2 *Relative to young adult level Estimated glomerular filtration rate is determined by the 2020 CKD-EPI equation recommended by the National [employer] (A Unifying Approach to GFR Estimation: Recommendations of the NKF-ASK Task Force on Reassessing the Inclusion of Race in Diagnosing Kidney Disease, JASN 202). The CKD-EPI equation should not be used for patients with unstable renal function and has not been validated in children and those over 70. Current interpretive data was last reviewed 2021. Blood 01/03/2025 4:39 PM CDT 01/03/2025 6:12 PM CDT us Morgan Mcclure MD LAB BLOOD ORDERABLES Final R esult [place] [id number] [facility] Department [place] [address] * Differential, auto (01/03/2025 4:39 PM CDT) Pathologist [facility] Neutrophil abs 2.58 1.50 - 6.50 K/cumm Imm gran abs 0.01 0.00 - 0.10 K/cumm [facility] Lymphocyte abs 1.20 0.80 - 3.30 K/cumm [facility] Monocyte abs 0.55 0.20 - 0.80 K/cumm [facility] Eosinophil abs 0.04 0.00 - 0.50 K/cumm [facility] Basophil abs 0.03 0.00 - 0.10 K/cumm [facility] Neutrophil pct 58.5 % [facility] Comment: Interpretive Data Percent cell count reference ranges are not reported, since discordance with absolute values may lead to misinterpretation of CBC data. Current Interpretive Data was last revised on 2017. Imm gran pct 0.2 % [facility] Comment: Interpretive Data Percent cell count reference ranges are not reported, since discordance with absolute values may lead to misinterpretation of CBC data. Current Interpretive Data was last revised on 2017. Lymphocyte pct 27.2 % [facility] Comment: Interpretive Data Percent cell count reference ranges are not reported, since discordance with absolute values may lead to misinterpretation of CBC data. Current Interpretive Data was last revised on 2017. Monocyte pct 12.5 % [facility] Comment: Interpretive Data Percent cell count reference ranges are not reported, since discordance with absolute values may lead to misinterpretation of CBC data. Current Interpretive Data was last revised on 2017. Eosinophil pct 0.9 % [facility] Comment: Interpretive Data Percent cell count reference ranges are not reported, since discordance with absolute values may lead to misinterpretation of CBC data. Current Interpretive Data was last revised on 2017. Basophil pct 0.7 % [facility] Comment: Interpretive Data Percent cell count reference ranges are not reported, since discordance with absolute values may lead to misinterpretation of CBC data. Current Interpretive Data was last revised on 2017. Blood 01/03/2025 4:39 PM CDT 01/03/2025 6:12 PM CDT Morgan Mcclure MD LAB BLOOD ORDERABLES Final R esult [facility] [address] [facility] Department [place] [address] * CBC with auto differential (01/03/2025 4:39 PM CDT) WBC 4.41 3.80 - 9.90 K/cumm Hgb 13.8 11.9 - 15.5 g/dL [facility] Hct 40.5 35.6 - 45.5 % [facility] Plt 157 150 - 400 K/cumm [facility] MPV 10.4 9.1 - 12.3 fL [facility] RBC 4.26 3.90 - 5.20 M/cumm [facility] MCV 95.1 81.3 - 96.4 fL [facility] MCH 32.4 27.1 - 33.3 pg [facility] MCHC 34.1 32.3 - 35.7 g/dL [facility] RDW CV 12.1 11.1 - 14.9 % [facility] RDW SD 41.9 35.7 - 48.1 fL [facility] NRBC abs 0.00 0.00 - 0.01 K/cumm [facility] Blood 01/03/2025 4:39 PM CDT 01/03/2025 6:12 PM CDT us Morgan Mcclure MD LAB BLOOD ORDERABLES Final R esult [facility] [address] [facility] Department [place] [address] * (ABNORMAL) Comprehensive metabolic panel (01/03/2025 4:39 PM CDT) Sodium 140 135 - 145 mmol/L Potassium, pl 4.1 3.3 - 4.9 mmol/L [facility] Chloride 102 97 - 110 mmol/L [facility] CO2 28 22 - 32 mmol/L [facility] Anion gap 10 2 - 15 mmol/L [facility] BUN 21 6 - 25 mg/dL [facility] Creatinine 0.52(L) 0.60 - 1.10 mg/dL [facility] Glucose 98 70 - 199 mg/dL [facility] Comment: Interpretive Data Fasting glucose >/= 126 mg/dl is diagnostic for diabetes. Fasting is defined as no caloric intake for at least 8 hours. Fasting glucose between 100 mg/dl to 125 mg/dl is diagnostic of prediabetes. In a patient with classic symptoms of hyperglycemia or hyperglycemic crisis, a random glucose >/= 200 mg/dl is diagnostic for diabetes. In the absence of unequivocal hyperglycemia, results should be confirmed by repeat testing. The classification and Diagnosis of Diabetes Diabetes Care 2021; 46: S19-S40. Current interpretive data was last revised 2022. Calcium 10.2 8.5 - 10.3 mg/dL [facility] Bilirubin, total 1.6(H) 0.1 - 1.2 mg/dL [facility] Protein, pl 7.3 6.5 - 8.5 g/dL [facility] Albumin 4.9 3.5 - 5.0 g/dL [facility] Alk phos 99 40 - 130 Units/L [facility] ALT 53(H) 7 - 45 Units/L [facility] AST 43 10 - 45 Units/L [facility] Blood 01/03/2025 4:39 PM CDT 01/03/2025 6:12 PM CDT us Morgan Mcclure MD LAB BLOOD ORDERABLES Final R esult [facility] [address] [facility] Department [place] [address] from Last 3 Months Insurance CarePayment OOS [employer] ACC[employer] Care Teams Cafeteria Manager Relationship Specialty Start Date End Date Morgan Mcclure MD PCP - General Internal Medicine 01/04/23
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
--- OUTSIDE RECORDS SUMMARY | 2025-01-08 16:43 | XMS_ITS | Data Portability ---
Author Organization [place] [facility], Main Office Address [address] [place] [address] Care Team Providers Care Business Development Manager Name Role Phone GENIA MCCLURE Primary Care Provider GENIA MCCLURE Referring Provider Assessment Encounter Date Assessment Date Assessment LastModified by Organization Details LastModified Time 05/31/2022 05/31/2022 Singulair doxycycline 100 b.i.d. 1 week follow-up [email or web address] Not available 06/01/2022 21:45:08 10/29/2022 10/29/2022 Will continue current therapy hypokalemia on labs from the ER 20 mEq of KCl daily rtc 4 months Not available 10/29/2022 17:06:10 11/25/2022 11/25/2022 Complete echo Lexiscan stress follow-up in 1 month Not available 11/25/2022 15:17:02 01/06/2023 01/06/2023 Will obtain sleep study given her mild pulmonary hypertension she is asymptomatic at this time I will see her back at her regularly scheduled point [email or web address] Not available 01/07/2023 10:56:57 Plan of Treatment Reminders Order Date Submit Date Provider Last Modified By Organization Details Last Modified Time Details Appointments None recorded. Lab None recorded. Referral None recorded. Procedures home sleep testing (PROC) 2022 023 [facility], [address] [place], [address], 11:51:01 lexiscan cardiolite stress test (PROC) - walking nuclear stress test no auth required 2022 023 [facility] [address], [place], [address], 13:50:49 Surgeries None recorded. Imaging US, echocardiog beto - no auth required 2022 023 [facility] [address], [place], [address], 17:26:21 Medication Orders Singulair 10 mg tablet 2022 023 [email or web address] [facility], [facility] [place] [place], [address], 10:41:19 doxycycline hyclate 100 mg capsule 2022 023 [address] [facility], [address] [place], [address], 3 10:40:15 Patient TargetsNo targets recorded. Patient InstructionsNo instructions recorded. Reason for Referral None Reported. Results Created Date Observation Date Name Description Value Unit Range Abnormal Flag Note LastModifiedBy Organization Detail LastModifiedTime 09/12/19 22 09/11/2021 COLOG UARD cologuard result cancel led - order d not applic able Not Available [facility] [address], [place], [address], 09/11/2021 06:49:32 10/21/19 23 10/20/2022 CT, abdom en + pelvi s, w/o contr ast No observ ation record ed. [address] [place], [address], 10/29/2022 14:34:23 10/26/19 23 10/25/2022 XR, abdom en No observ ation record ed. [address] [place], [address], 10/29/2022 14:35:29 11/20/1911/19/2022 XR, abdom en No observ ation record ed. [address], [address], 11/26/2022 10:06:50 11/24/1911/16/2022 elect honorio diogr am No observ ation record ed. [address] [place], [address], 11/26/2022 10:07:36 11/27/1911/26/2022 XR, kidne y + urete r + bladd er No observ ation record ed. [address] [place], [address], 01/17/2023 16:22:58 01/05/2001/04/2023 leonard can cardi olite stres s test (PROC ) No observ ation record ed. [address] [address], [place], [address], 01/17/2023 16:23:16 01/05/20 23 01/04/2023 leonard can cardi olite stres s test (PROC ) No observ ation record ed. [address], [address], 01/17/2023 16:23:17 01/05/20 23 01/04/2023 leonard can cardi olite stres s test (PROC ) No observ ation record ed. [address], [address], 01/17/2023 16:23:17 01/05/20 23 01/04/2023 leonard can cardi olite stres s test (PROC ) No observ ation record ed. [address] [address], [place], [address], 01/17/2023 16:23:18 01/05/2001/04/2023 US, echoc ardio gram No observ ation record ed. [address] [address], [place], [address], 01/17/2023 16:22:58 01/05/2001/04/2023 leonard can cardi olite stres s test (PROC ) No observ ation record ed. [address] [address], [place], [address], 01/17/2023 16:23:18 02/08/2001/18/2023 home sleep testi ng (PROC ) No observ ation record ed. [address] [address], [place], [address], 03/16/2023 16:52:54 03/07/2001/04/2023 US, echoc ardio gram No observ ation record ed. [address] [address], [place], [address], 04/02/2023 10:56:20 03/07/2001/04/2023 leonard can cardi olite stres s test (PROC ) No observ ation record ed. [address] [address], [place], [address], 04/02/2023 10:55:31 Result Notes None recorded. Problems Name Problem SNOMED Code Status Onset Date Resolution Date Notes Provider Name and Address Organization Details Recorded Time Benign essential hypertens ion 6485290 Active Not Available [facility] 3 04:54:36 Fear of flying 090015003 Active Not Available [facility] 3 04:54:36 Uterine prolapse 30696973 Active Not Available [facility] 3 04:54:36 Cystocele 599288565 Active Not Available [facility] 3 04:54:36 Vitamin D deficienc y 89408606 Active Not Available [facility] 3 04:54:36 Laryngiti s 67652738 Active Not Available [facility] 3 04:54:37 Sprain of foot 17511084 Active Not Available [facility] 3 04:54:37 Dysuria 69860858 Completed Not Available [facility] 3 04:54:37 Supravent ricular tachycard ia 3476629 Active Not Available [facility] 3 04:54:37 Urinary tract infectiou s disease 77076551 Completed Not Available [facility] 3 04:54:37 Closed fracture of phalanx of foot 99721664 Active Not Available [facility] 3 04:54:37 Pain in limb 51562793 Completed Not Available [facility] 3 04:54:38 COVID-19 098005515 Active 2021 Not Available [facility] 3 04:54:37 Pain in throat 841289388 Active 2021 Not Available [facility] 3 04:54:36 Backache 882013606 Active 2021 Not Available [facility] 3 04:54:36 Thoracic back pain 065309788 Active 2021 Not Available [facility] 3 04:54:36 Ingrowing toenail 112954812 Active 2021 Not Available [facility] 3 04:54:37 Paronychi a of toe of right foot 24470143647 820908 Active 2021 Not Available [facility] 3 04:54:36 Hyperlipi demia 92520785 Active 2021 Not Available [facility] 3 04:54:37 Rhinitis 51916504 Active 2022 JAVI Gottlieb null, [place] [facility] 3 15:51:39 Hypokalem ia 38854279 Active 2022 Joya north, [facility] 3 11:39:17 Electroca rdiogram abnormal 482539172 Active 2022 JAVI Gottlieb, [facility] 3 15:08:35 Sleep disorder 71187338 Active 2022 JAVI Gottlieb, [facility] 3 17:20:59 Problem Notes None recorded. Procedures Surgical History Date Name Laterality Status Provider Name and Address Organization Details Recorded Time Oral surgery procedure completed Not Available [facility] 05/26/2022 04:45:13 Cauterization of cervix completed Not Available [facility] 05/26/2022 04:45:13 Ingrown Toenail completed Not Available [facility] 05/26/2022 04:45:13 Imaging Results None recorded. Procedure Notes None recorded. Medical Equipment None Reported. Allergies Allergen ID Allergen Name Allergen Category Reaction Reaction Severity Criticality Documentation Date Start Date Code Code System Note Provider Name and Address Organization Details Recorded Time 8323 Stadol medicatio n other severe Not available 05/26/2022 92983 RxNorm effec tommie heart rate & blood press ure - neede d Narca n to count er - act Not Available [facility] 3 05:04:43 8324 Keflex medicatio n other mild Not available 05/26/202297353 7 RxNorm finge rtips peel Not Available [facility] 3 05:04:43 Medications Name Sig Start Date Stop Date Status Note LastModified by Organization Details LastModified Time cyclobenza wes 10 mg tablet 10/29 completed Not Available Not Available Not Available amoxicilli n 500 mg capsule active Not Available Not Available Not Available doxycyclin e hyclate 100 mg capsule Take 1 capsule twice a day by oral route for 7 days. 10/29 completed Not Available Not Available Not Available clindamyci n HCl 300 mg capsule 06/30 completed Not Available Not Available Not Available tizanidine 4 mg tablet Take 1 tablet twice a day by oral route as needed. 05/31 completed Not Available Not Available Not Available hydrocodon e 5 mg-acetami nophen 325 mg tablet 04/15 completed Not Available Not Available Not Available phenazopyr idine 200 mg tablet TAKE 1 TABLET BY MOUTH THREE TIMES DAILY NEEDED FOR PAIN FOR 3 DAYS 10/29 completed Not Available Not Available Not Available Zithromax 250 mg tablet TAKE 2 TABLETS (500 MG) BY ORAL ROUTE ONCE DAILY FOR 1 DAY THEN 1 TABLET (250 MG) BY ORAL ROUTE ONCE DAILY FOR 4 DAYS 08/12 completed Not Available Not Available Not Available ciprofloxa benjamin 500 mg tablet Take 1 tablet twice a day by oral route. active Not Available Not Available No t Available sulfametho xazole 800 mg-trimeth oprim 160 mg tablet active Not Available Not Available No t Available ketorolac 10 mg tablet active Not Available Not Available Not Available alprazolam 0.25 mg tablet Take 1 tablet every day by oral route as needed. active Not Available Not Available No t Available potassium chloride ER 20 mEq tablet,ext ended release(pa rt/cryst) TAKE ONE TABLET BY MOUTH DAILY active Not Available Not Available No t Available Valium 2 mg tablet Take 1 tablet po 1 hour before flight 07/23 completed Not Available Not Available Not Available doxycyclin e monohydrat e 100 mg capsule 02/09 completed Not Available Not Available Not Available dexamethas one 2 mg tablet One Tablet TID for 3 Days One Tablet BID for 3 Days One Table once daily 3 days active Not Available Not Available No t Available nitrofuran toin macrocryst al 100 mg capsule TAKE 1 CAPSULE BY MOUTH TWICE DAILY FOR 7 DAYS 10/29 completed Not Available Not Available Not Available polymyxin B sulfate 10,000 unit-trime thoprim 1 mg/mL eye drops 09/11 completed Not Available Not Available Not Available verapamil ER (SR) 240 mg tablet,ext ended release TAKE ONE TABLET BY MOUTH ONCE A DAY active Not Available Not Available No t Available montelukas t 10 mg tablet Take 1 tablet every day by oral route. 10/29 completed taking zyrtec Not Available Not Available Not Available mupirocin 2 % topical ointment 02/09 completed Not Available Not Available Not Available digoxin 125 mcg (0.125 mg) tablet TAKE ONE TABLET BY MOUTH ONCE A DAY active Not Available Not Available No t Available ergocalcif juliano (vitamin D2) 1,250 mcg (50,000 unit) capsule Take 1 capsule every month by oral route. 04/15 completed Not Available Not Available Not Available levofloxac in 500 mg tablet TK 1 T PO Q 24 H FOR 7 DAYS 04/23 completed Not Available Not Available Not Available verapamil ER 240 mg 24 hr capsule,ex tended release TAKE ONE CAPSULE BY MOUTH ONCE A DAY 2022 active Not Available Not Available Not Avai lable amoxicilli n 875 mg-potassi um clavulanat e 125 mg tablet 04/23 completed Not Available Not Available Not Available azithromyc in 500 mg tablet 01/08 completed Not Available Not Available Not Available acyclovir 5 % topical cream APPLY TO AFFECTED AREA THREE TIMES A DAY DIRECTED active Not Available Not Available No t Available nitrofuran toin monohydrat e/macrocry stals 100 mg capsule 11/25 completed Not Available Not Available Not Available potassium chloride ER 20 mEq tablet,ext ended release Take 1 tablet every day by oral route. 2022 active Not Available Not Available Not Avai lable Vitals Date Recorded Body height Body mass index (BMI) Body weight Body temperature Heart rate Systolic And Diastolic Provider Name and Address Organization Details Last Updated DateTime 3 163.83 cm 24 kg/m2 39007.1 2 g 97.9 [degF] 75 /min 118/84 mm[Hg] Edelmira Robles [employer] 3 14:59:26 Date Recorded Body height Body mass index (BMI) Body weight Body temperature Heart rate Systolic And Diastolic Provider Name and Address Organization Details Last Updated DateTime 3 163.83 cm 24.5 kg/m2 54220.8 9 g 98.2 [degF] 70 /min 124/70 mm[Hg] Edelmira Robles [employer] 3 10:44:29 Date Recorded Body height Body mass index (BMI) Body weight Body temperature Heart rate Systolic And Diastolic Provider Name and Address Organization Details Last Updated DateTime 3 163.83 cm 24.5 kg/m2 20340.8 9 g 97.4 [degF] 70 /min 120/80 mm[Hg] Edelmira Robles [facility] 3 14:58:55 Date Recorded Body height Body mass index (BMI) Body weight Body temperature Heart rate Systolic And Diastolic Provider Name and Address Organization Details Last Updated DateTime 3 163.83 cm 24.8 kg/m2 59762.0 8 g 98.3 [degF] 68 /min 128/82 mm[Hg] Edelmira Robles [facility] [place] [facility] 3 16:01:17 Date Recorded Body mass index (BMI) Body height Heart rate Body temperature Body weight Systolic And Diastolic Provider Name and Address Organization Details Last Updated DateTime 2 23.5 kg/m2 163.83 cm 62 /min 97.5 [degF] 07760.3 4 g 124/84 mm[Hg] Not Available [facility] 3 04:50:50 Social History Question Answer Notes LastModified by Organizat ion Details LastModified Time Tobacco Smoking Status Never Smoker Not Available [facility] 05/26/2022 04:43:07 Do You Have An Advance Directive? No MIGRATION.65733 04530 Information not available 05/26/2022 What Is Your Level Of Caffeine Consumption? Occasional MIGRATION.50501 14637 Information not available 05/26/2022 How Much Tobacco Do You Chew? None MIGRATION.50824 14046 Information not available 05/26/2022 In The 14 Days Before Symptom Onset, Have You Had Close Contact With A Laboratory-confi rmed COVID-19 While That Case Was Ill? No MIGRATION.38284 84385 Information not available 05/26/2022 In The 14 Days Before Symptom Onset, Have You Had Close Contact With A Person Who Is Under Investigation For COVID-19 While That Person Was Ill? No MIGRATION.65221 32905 Information not available 05/26/2022 What Type Of Diet Are You Following? REGULAR MIGRATION.46982 27735 Information not available 05/26/2022 Which Illicit Or Recreational Drugs Have You Used? None MIGRATION.58134 37858 Information not available 05/26/2022 What Is The Highest Grade Or Level Of School You Have Completed Or The Highest Degree You Have Received? PQ55892-2 MIGRATION.84404 06021 Information not available 05/26/2022 Have There Been Any Changes To Your Family Or Social Situation? No MIGRATION.45274 72338 Information not available 05/26/2022 What Is The Fluoride Status Of Your Home? Unknown MIGRATION.27181 96405 Information not available 05/26/2022 Are There Any Guns Present In Your Home? Yes MIGRATION.91649 97179 Information not available 05/26/2022 Do You Use Insect Repellent Routinely? No MIGRATION.80237 06482 Information not available 05/26/2022 Where Do You Live? [place] MIGRATION.29605 01892 Information not available 05/26/2022 Do You Have A Medical Power Of Molder Helper? No MIGRATION.15941 30475 Information not available 05/26/2022 What Was The Date Of Your Most Recent Tobacco Screening? 01/06/2023 Information not available 01/06/2023 Have You Ever Been Counseled For Unhealthy Alcohol Use? No MIGRATION.64921 77916 Information not available 05/26/2022 Do You Have Any Pets? No MIGRATION.27326 18074 Information not available 05/26/2022 What Is Your Relationship Status? MIGRATION.81853 04920 Information not available 05/26/2022 Do You Use Your Seat Belt Or Car Seat Routinely? Yes MIGRATION.45729 20185 Information not available 05/26/2022 Do You Have Smoke And Carbon Monoxide Detectors In Your Home? Yes MIGRATION.95509 34092 Information not available 05/26/2022 Are You Passively Exposed To Smoke? No MIGRATION.08935 12084 Information not available 05/26/2022 Are There Any Smokers In Your House? No MIGRATION.93761 54581 Information not available 05/26/2022 How Much Tobacco Do You Smoke? No MIGRATION.00272 52057 Information not available 05/26/2022 What Types Of Sporting Activities Do You Participate In? None MIGRATION.31057 30431 Information not available 05/26/2022 Do You Use Sunscreen Routinely? Yes MIGRATION.06384 08953 Information not available 05/26/2022 Has Tobacco Cessation Counseling Been Provided? No Not Needed-ne manjeet Smoked MIGRATION.68017 24773 Information not available 05/26/2022 How Many Years Have You Smoked Tobacco? 0 MIGRATION.57933 96530 Information not available 05/26/2022 Have You Recently Traveled Abroad? No MIGRATION.09065 25565 Information not available 05/26/2022 Do You Have Any Dietary Restrictions? No MIGRATION.02913 39749 Information not available 05/26/2022 Sex: Female Functional Status Question Answer Note LastModified by [employer] Details LastModified Time Do you use any illicit or recreational drugs? No MIGRATION.629867 2365 Information not available 05/26/2022 Do you or have you ever used any other forms of tobacco or nicotine? No MIGRATION.638572 7772 Information not available 05/26/2022 What is your level of alcohol consumption? Occasional MIGRATION.265420 3215 Information not available 05/26/2022 Do you or have you ever used smokeless tobacco? Never used smokeless tobacco MIGRATION.695029 3454 Information not available 05/26/2022 What is your occupation? teacher MIGRATION.561529 6018 Information not available 05/26/2022 Do you or have you ever used e-cigarettes or vape? Never used electronic cigarettes MIGRATION.035282 9463 Information not available 05/26/2022 What is your exercise level? Moderate MIGRATION.134298 9642 Information not available 05/26/2022 Mental Status Question Answer Note LastModified by [employer] Details LastModified Time Do you feel stressed (tense, restless, nervous, or anxious, or unable to sleep at night)? [id number] MIGRATION.[id number] 6 Information not available 05/26/2022 Family History Relationship Description Onset Age of this Age Resolved Age Notes LastModified by Organization Details LastModified Time Mother Malignant neoplasm of peritoneum MIGRATION.258 [id number] Not available 05/26/2022 04:45:19 Mother Hypertensive disorder MIGRATION.562 3236961 Not available 05/26/2022 04:45:19 Father Myocardial infarction MIGRATION.183 1469819 Not available 05/26/2022 04:45:19 Father Hypertensive disorder MIGRATION.968 8152647 Not available 05/26/2022 04:45:20 Maternal Grandmother Malignant neoplasm of lung MIGRATION.729 0681031 Not available 05/26/2022 04:45:20 Maternal Grandfather Cerebrovascu lar accident MIGRATION.600 0745282 Not available 05/26/2022 04:45:20 Paternal Grandfather Malignant neoplasm of colon MIGRATION.803 3185775 Not available 05/26/2022 04:45:20 Paternal Grandfather Malignant neoplasm of lung MIGRATION.126 3266608 Not available 05/26/2022 04:45:20 Brother Myocardial infarction 59 MIGRATION.845 9355568 Not available 05/26/2022 04:45:20 Mother Age related macular degeneration [id number] Not available 0 10/29/2022 10:42:23 Father Age related macular degeneration [id number] Not available 0 10/29/2022 10:42:41 Father Family history of malignant neoplasm Lung [id number] Not available 06/2022 10:43:05 Medical History Condition Response NERVE DISEASE N BLINDNESS N RHEUMATIC FEVER N KIDNEY STONES N BLADDER PROBLEMS N MRSA N OTHER # 1 Y POLIO N LUNG DISEASE/DISORDER N RADIATION / CHEMOTHERAPY N COPD N Other # 2 N BLOOD DISEASES N EAR OR HEARING PROBLEMS N MUMPS N BOWEL PROBLEMS N DEPRESSION (INCLUDING POST ) N STROKE/TIA N ULCERS N BENIGN PROSTATIC HYPERPLASIA N MEASLES N MYOCARDIAL INFARCTION N OBESITY N GERD/NAUSEA N ANEURYSM N URINARY/BLADDER/KIDNEY PROBLEMS N CORONARY ARTERY DISEASE (CAD) N ADDICTION CONCERNS N Impotence N ENDOMETRIOSIS N USE OF BLOOD THINNERS N SKIN PROBLEMS N GASTROINTESTINAL DISORDER N PERIPHERAL VASCULAR DISEASE N MUSCLE,JOINT OR BONE PROBLEMS N GASTROINTESTINAL BLEEDING N BLOOD CLOTS N ASTHMA N CATARACTS N ERECTILE DYSFUNCTION N VARICOSITIES N GI PROBLEMS N Low Testosterone N INFERTILITY N AIDS/HIV N CHEMOTHERAPY / RADIATION N LIVER DISEASE N MALE HYPOGONADISM N HYPERTENSION Y Deficiency Y TOURETTE'S N ANXIETY DISORDER N BLOOD TRANSFUSION N ANEMIA/BLOOD DISORDER N CHRONIC EAR INFECTIONS N BRONCHITIS N TUBERCULOSIS N GLAUCOMA N FOOT PROBLEM N DIVERTICULITIS N SLEEP APNEA N CHICKENPOX N INFECTIOUS DISEASE N PROSTATE N HEART ARRHYTHMIA N INSOMNIA N HIGH CHOLESTEROL / HYPERLIPIDEMIA N EYE PROBLEMS N HYPERTHYROIDISM N EDEMA N CHRONIC PAIN SYNDROME N HYPOTHYROIDISM N CONSTIPATION N CAROTID BLOCKAGE N BACK / NECK PROBLEMS Y ATHEROSCLEROSIS N BREAST PROBLEMS N DIALYSIS N ECZEMA N OSTEOPOROSIS N ARTHRITIS N APPENDICITIS N DIABETES, TYPE N BAD TEETH N ENT N HEARTBURN / REFLUX N AUTISM SPECTRUM DISORDER (ASD) N HEPATITIS / LIVER DISEASE N GOUT N SLEEP DISORDER N ALZHEIMER'S DISEASE N Brain Problems N DEMENTIA N HERPES N SEIZURES/EPILEPSY N HEADACHES/MIGRAINES N VASCULAR DISEASE N PACEMAKER N Blood Disorder N DIZZINESS N HEART DISEASE/HEART PROBLEMS N KIDNEY DISEASE N MULTIPLE SCLEROSIS N CANCER: SPECIFY N CARDIAC ARRHYTHMIA Y ATRIAL FIBRILLATION N Gall Stones N PULMONARY EMBOLISM N AUTOIMMUNE DISEASE N Gynecological History Statement/Question Response Abnormal Pap N Date of Last Pap 06/09/2010 Date of Last Mammogram 10/06/2011 Current Control Method Menopause Date of Last Colonoscopy Obstetrics History GPAL:G 2 P 2 0 0 2 Type Value Full Term 2 Living 2 Total 2 Past Encounters Encounter ID Performer Location Encounter Start Date Encounter Closed Date Diagnosis/Indication Diagnosis SNOMED-CT Code Diagnosis ICD10 Code Diagnosis IMO Codes Diagnosis Note [id number] Genia Mcclure MD [facility] [place] [address] , [place] [address] 09/11/2020 00:00:00 09/11/2020 23:02:28 [id number] Genia Mcclure MD [facility] Internal Med [place] [address] [place] [address] y , [place] [address] 03/10/2021 00:00:00 03/27/2021 15:13:06 [id number] Genia Mcclure MD [facility] Internal Med [facility] [address] [place] [address] 08/12/2021 00:00:00 08/12/2021 21:22:25 [id number] Genia Mcclure MD [facility] Internal Med [place] [address] [facility] [address] , [place] [address] 09/15/2021 00:00:00 09/15/2021 22:45:45 [id number] [facility] [place] [address] [place] [address] 11/19/2021 00:00:00 11/22/2021 11:20:12 [id number] [facility] [place] [address] [place] [address] 12/03/2021 00:00:00 12/08/2021 10:16:02 [id number] Genia Mcclure MD [facility] [place] [address] [facility] [address] , [place] [address] 02/09/2022 00:00:00 02/20/2022 12:44:11 [id number] Genia Mcclure MD [facility] Internal Med [facility] [address] [place] [address] 05/31/2022 14:43:53 05/31/2022 15:55:07 Rhinitis 59751804 J00 [id number] Genia Mcclure MD [facility] Internal Med [place] [address] [place] [address] 10/29/2022 10:34:42 10/29/2022 11:40:26 Benign essential hypertension 2195958 I10 Hyperlipidemia 37357409 E78.5 Supraventr icular tachycardia 7792660 I47.1 Hypokalemia 49576610 E87 .6 [id number] Genia Mcclure MD [facility] Internal [place] [address] [place] [address] 11/25/2022 14:50:21 11/25/2022 15:11:33 Electrocardiogram abnormal 298037606 R94.31 [id number] Genia Mcclure MD [facility] Internal Med [address] [place] [address] 01/06/2023 15:53:18 01/06/2023 17:19:04 Sleep disorder 07242963 G47.9 Hyperlipidemia [id number] E78.5 Benign ess ential hypertension [id number] I10 Health Concerns Section Related Observation LastModified by Organization Detai ls LastModified Time None Recorded Concern Status LastModified by Organization Details LastModified Time None Recorded Advance Directives Directive N: Payers Insurance Date Sequence Insurance Name Policy Number Policy Mendoza Covered Member ID Mendoza Member ID Guarantor Name 01/05/2023 1 [facility] ([facility] [id number] Gail Queen [id number] Gail Queen Notes Date Note Type Note Provider Name and Address Organization Details Recorded Time 05/31/2022 text/html Sinus infection symptoms Genia Mcclure MD [address], [address], [place], [address], [facility] 06/01/2022 21:45:26 10/29/2022 text/html DVT no symptoms. Hypertension no headache no dizziness. Dyslipidemia does try to watch diet. Hematuria ER kidney stone getting set up for lithotripsy. Genia Mcclure MD [address], [address], [place], [address], [facility] 10/29/2022 17:06:27 11/25/2022 text/html Had a kidney stone taking care of in preop EKG showed sinus rhythm with possibly some inferolateral minimal ST segment depression and she is completely asymptomatic Genia Mcclure MD [address], [address], [place], [address], [facility] 11/25/2022 15:17:20 01/06/2023 text/html Stress test negative for ischemia good ejection fraction echo mild pulmonary hypertension 37 mmHg pressure with [id number] mitral regurgitation normal LV function. She is asymptomatic Genia Mcclure MD [address], [address], [place], [address], [facility] 01/07/2023 10:57:29 OBGyn Episode No OBEpisode recorded.
--- OUTSIDE RECORDS SUMMARY | 2025-01-08 16:43 | XMS_ITS | Clinical Summary ---
Author Organization [facility] Address [address] [place] [address] Phone Care Team Providers Care Director Advanced Name Role Phone Morgan Mcclure MD Primary Care Provider [phone] Allergies Active Allergy Reactions Criticality Noted Date [...] Comments Blood Pressure 120/72 05/29/2019 10:49 AM [employer] Pulse 81 05/29/2019 10:49 AM [employer] Temperature 37.4 C (99.4 F) 05/29/2019 10:49 AM [employer] Respiratory Rate 18 05/29/2019 10:4 9 AM [employer] Oxygen Saturation 96% 05/29/2019 10: 49 AM [employer] Inhaled Oxygen Concentration - - Weight 65.2 kg (143 lb 12.8 oz) 020 10:49 AM [employer] Height 162.6 cm (5' 4) 05/29/2019 10:4 9 AM [employer] Body Mass Index 24.68 05/29/2019 10:49 AM [employer] Plan of Treatment Health Maintenance Due Date Last Done Comments Hepatitis C Virus (HCV) Screening 1962 TdaP Immunization 1960 Pap Smear 06/15/1983 Cervical Cancer Screening (CCS) 1992 HPV/Cotest 1992 Cologuard 06/15/2007 Colonoscopy 06/15/2007 Colorectal Cancer Screening 06/15/2007 Immunochemical Fecal Occult Blood 06/15/2007 Pneumococcal Immunization (5 0+ years) (1 of 1 - PCV) 2012 Zoster Immunization (1 of 2) 2012 Influenza Immunization (#1) 2024 SARS-COV-2 Immunization ( - 2023-25 season) 2024 Respiratory Syncytial Virus (RSV) Immunization (Adult) (1 - 1-dose 75+ series) 2037 Hepatitis B Immunization Aged Out No longer eligible based on patient's age to complete this topic Human Papillomavirus (HPV) Immunization Aged Out No longer eligible b ased on patient's age to complete this topic Meningococcal Immunization (ACWY) Aged Out No longer eligible based on patient's age to complete this topic Rotavirus Immunization Aged Out No lo nger eligible based on patient's age to complete this topic Insurance [facility] Care Teams Director Advanced Relationship Specialty Start Date End Date Morgan Mcclure MD PCP - General Internal Medicine 05/14/19
== END 2025-01-08 14:42 | disposition home or self-care (01) ==
PROVIDERS: PCP Internal Medicine; Visit Provider Internal Medicine
DX: M46.1 Sacroiliitis, not elsewhere classified (principal); M53.3 Sacrococcygeal disorders, not elsewhere classified
CPT/HCPCS: 72192